=== PATIENT | male | born 1975 | race Caucasian/White ===

== ENCOUNTER → 2017-06-07 | Outpatient (CLI) | payer BC ==
--- NOTE | 2017-06-07 10:40 | CT ---
EXAMINATION TYPE: CT abdomen pelvis w con DATE OF EXAM: 06/07/2017 COMPARISON: NONE HISTORY: Infected abdominal wound CT DLP: 4541.40 mGycm Automated exposure control for dose reduction was used. CONTRAST: CT scan of the abdomen pelvis is performed with IV Contrast, patient injected with 100 ml mL of Omnip aque 300. FINDINGS- LUNG BASES-vague nodular density measuring 3 mm within the right middle lobe. LIVER/GB-liver slightly reduced in attenuation which can be seen with early fatty infiltration. No ga llstones. PANCREAS- No gross abnormality is seen. SPLEEN- No gross abnormality is seen. ADRENALS- No gross abnormality is seen. KIDNEYS/BLADDER- no hydronephrosis nephrolithiasis or renal mass. BOWEL- no bowel dilatation. Normal appendix. LYMPH NODES- No greater than 1cm abdominal or pelvic lymph nodes are appreciated. OSSEOUS UBCPSRQRDR-hvl-ghhvgjryit inguinal hernia bilaterally. OTHER- there is thickening in the per iumbilical region in the soft tissues. There is no evidence of subcutaneous abscess. Aorta of normal caliber. Prostate gland mildly prominent. Internal calcification seen. IMPRESSION- 1. There is soft tissue thickening in the periumbilical region. No definable abscess cavity seen. Lik marcia accounts for the history of suspected abdominal wound. No intra-abdominal extension seen. 2. 2. Nonspecific 3 mm right middle lobe pulmonary nodule. Six-month follow-up recommended.
== END | disposition home or self-care (01) ==
LOC: RADCTMAIN 09:30
PROVIDERS: ATTEND Surgery
DX: L08.9 Local infection of the skin and subcutaneous tissue, unspecified (principal)
CPT/HCPCS: 74177; Q9967

== ENCOUNTER 2017-06-21 07:24 | Emergency (ER) | payer BC ==
[2017-06-21 07:30] VITALS: BP 141/77; PULSE 94; RESP 16; TEMP 98.9
[2017-06-21] MEDS ORDERED: predniSONE 50 MG TAB PO STA (08:14)
[2017-06-21] MEDS ORDERED: AZITHROMYCIN 500 MG TAB PO STA (08:14)
--- NOTE | 2017-06-21 08:18 | XR ---
EXAMINATION TYPE: XR chest 2V DATE OF EXAM: 06/21/2017 COMPARISON: NONE HISTORY: Cough per patient. Chest pain per order. TECHNIQUE: Frontal and lateral views of the chest are obtained. FINDINGS: Somewhat low lung volumes are noted. There is some eventration of the anterior aspect righ t hemidiaphragm. There is no focal air space opacity, pleural effusion, or pneumothorax seen. The ca rdiac silhouette size is within normal limits. The osseous structures are intact. IMPRESSION: No acute cardiopulmonary process.
--- NOTE | 2017-06-21 08:22 | ED ---
URI HPI - General Chief Complaint: Upper Respiratory Infection Stated Complaint: COUGH, LUNGS Time Seen by Provider: 06/21/17 07:53 Source: patient, RN notes reviewed, old records reviewed Mode of arrival: ambulatory Limitations: no limitations - History of Present Illness Initial Comments: This is a 42-year-old male presenting to emergency Department chief complaint increased cough and congestion for the past few days. Patient reports that on the weekend he started to have an upper respiratory infection including sore throat, and sinus drainage. Patient states that he has been taking over-the- counter medication. He reports he recently has had a baby girl, is concerned that he could transmit an infection to her. Patient states that he has severe coughing fits, so primary last vomit. Denies any history of sick contacts is aware of. Denies any travel history. No chest pain shortness of breath, nausea or vomiting abdominal pain. - Related Data Home Medications Medication Instructions Recorded Confirmed Amoxicillin/Potassium Clav 1 tab PO Q12HR 06/21/17 06/21/17 [Augmentin 875-125 Tablet] Previous Rx's Medication Instructions Recorded Azithromycin [Zithromax Z-pack] 250 mg PO DIRECTED #6 tab 06/21/17 methylPREDNISolone Dose Pack 4 mg PO DIRECTED #21 package 06/21/17 [Medrol Dose Pack] Allergies Allergy/AdvReac Type Severity Reaction Status Date / Time No Known Allergies Allergy Verified 06/21/17 07:43 Review of Systems ROS Statement: Those systems with pertinent positive or pertinent negative responses have been documented in the HPI. ROS Other: All systems not noted in ROS Statement are negative. Past Medical History Past Medical History: No Reported History History of Any Multi-Drug Resistant Organisms: None Reported Past Surgical History: No Surgical Hx Reported Past Psychological History: No Psychological Hx Reported Smoking Status: Never smoker Past Alcohol Use History: None Reported Past Drug Use History: None Reported General Exam - General Exam Comments Initial Comments: Morbidly obese 42-year-old male. No acute distress. Limitations: no limitations General appearance: alert, in no apparent distress Head exam: Present: atraumatic, normocephalic, normal inspection Eye exam: Present: normal appearance, PERRL, EOMI. Absent: scleral icterus, conjunctival injection, periorbital swelling ENT exam: Present: normal exam, mucous membranes moist Neck exam: Present: normal inspection. Absent: tenderness, meningismus, lymphadenopathy Respiratory exam: Present: normal lung sounds bilaterally. Absent: respiratory distress, wheezes, rales, rhonchi, stridor Cardiovascular Exam: Present: regular rate, normal rhythm, normal heart sounds. Absent: systolic murmur, diastolic murmur, rubs, gallop, clicks GI/Abdominal exam: Present: soft, normal bowel sounds. Absent: distended, tenderness, guarding, rebound, rigid Extremities exam: Present: normal inspection, full ROM, normal capillary refill. Absent: tenderness, pedal edema, joint swelling, calf tenderness Back exam: Present: normal inspection Neurological exam: Present: alert, oriented X3, CN II-XII intact Psychiatric exam: Present: normal affect, normal mood Skin exam: Present: warm, dry, intact, normal color. Absent: rash Course Vital Signs 06/21/17 07:27 Temperature 98.9 F Pulse Rate 94 Respiratory 16 Rate Blood Pressure 141/77 O2 Sat by Pulse 94 L Oximetry Medical Decision Making - Medical Decision Making 42-year-old male chief complaint of increased cough over the past 2 days. Patient instructed to be negative for any signs of pneumonia. Patient has had a productive cough in the emergency department. No significant wheezing noted. Patient will be treated for bronchitis with azithromycin and prednisone. Discussed close follow-up with primary care provider or return if it is getting any worse. Testing [id number]-gvuerqt medications as well. Patient be discharged with a prescription for rest and prednisone. As well as an albuterol however patient received treatment plan will comply. Temperature discussed. - Radiology Data Radiology results: report reviewed Chest x-rays negative for any acute process. Disposition Clinical Impression: Bronchitis Disposition: HOME SELF-CARE Condition: Good Instructions: Acute Bronchitis (ED) Additional Instructions: Rest rest, increase fluids. Continue to take [id number] cough and sinus medication. Take steroid prescription and Robaxin as prescribed. Return to emergency department if any alarming signs or symptoms occur. Prescriptions: Azithromycin [Zithromax Z-pack] 250 mg PO DIRECTED #6 tab methylPREDNISolone Dose Pack [Medrol Dose Pack] 4 mg PO DIRECTED #21 package Referrals: Jose Andres MD [Primary Care Provider] - 1-2 days Time of Disposition: 08:18
--- NOTE | 2017-06-21 08:24 | ED ---
Disposition Clinical Impression: Bronchitis Disposition: HOME SELF-CARE Condition: Good Instructions: Acute Bronchitis (ED) Additional Instructions: Rest rest, increase fluids. Continue to take [id number]-[id number] cough and sinus medication. Take steroid prescription and Robaxin as prescribed. Return to emergency department if any alarming signs or symptoms occur. Prescriptions: Albuterol Inhaler [Ventolin Hfa Inhaler] 1 - 2 puff INHALATION Q6HR PRN #1 inhaler PRN Reason: Shortness Of Breath Azithromycin [Zithromax Z-pack] 250 mg PO DIRECTED #6 tab methylPREDNISolone Dose Pack [Medrol Dose Pack] 4 mg PO DIRECTED #21 package Referrals: Jose Andres MD [Primary Care Provider] - 1-2 days Time of Disposition: 08:24
== END 2017-06-21 08:50 | disposition home or self-care (01) ==
LOC: EC 07:24
DX: J40 Bronchitis, not specified as acute or chronic (principal); E66.01 Morbid (severe) obesity due to excess calories; Z68.42 Body mass index [BMI] 45.0-49.9, adult
CPT/HCPCS: 71020; 99284; J7512

== ENCOUNTER → 2017-07-11 | Outpatient (CLI) | payer BC ==
--- NOTE | 2017-07-11 17:07 | CT ---
EXAMINATION TYPE: CT chest wo con DATE OF EXAM: 07/11/2017 COMPARISON: NONE HISTORY: Pulmonary nodule. CT DLP: 883.00 mGycm. Automated Exposure Control for Dose Reduction was Utilized. TECHNIQUE: CT scan of the thorax is performed without IV contrast. FINDINGS: The lungs are clear of consolidation. There is no pleural effusion. There is no pericardial effusion. I see no mediastinal adenopathy. There are no hilar masses. The bony thorax is intact. I see no defi nite pulmonary nodule. There is no evidence of aortic aneurysm. IMPRESSION: Negative CT scan of the chest. I do not see a definite right middle lobe nodule that is s uggested by the abdomen CT scan report of 06/07/2017.
== END | disposition home or self-care (01) ==
LOC: RADCTMAIN 16:19
PROVIDERS: ATTEND Internal Medicine Sleep Medicine
DX: R91.1 Solitary pulmonary nodule (principal)
CPT/HCPCS: 71250

== ENCOUNTER 2018-09-28 16:57 | Emergency (ER) | payer BC ==
[2018-09-28 17:15] VITALS: PULSE 55; RESP 16; TEMP 98.4
[2018-09-28] MEDS ORDERED: ACET/COD 300 MG/30 MG STARTER PACK 6 TAB BTL PO STA (17:52)
[2018-09-28] MEDS ORDERED: LIDOCAINE 1% INJ 10MG/ML (20 ML MDV) SQ ONE (17:52)
[2018-09-28 17:57] VITALS: BP 144/97
--- NOTE | 2018-09-28 18:08 | ED ---
ENT HPI - General Chief complaint: Dental/Oral Stated complaint: dental pain/headaches Time Seen by Provider: 09/28/18 17:18 Source: patient, RN notes reviewed, old records reviewed Mode of arrival: ambulatory Limitations: no limitations - History of Present Illness Initial comments: Patient is a 43-year-old male who presents emergency Department chief complaint of headache and dental pain. Patient reports that he had a root canal on . He was having dental pain and headaches for the past week prior to his root canal. Patient states that Patient will have intermittent pain since . Patient states that he has had no fevers or chills. Patient reports he has no chest pain shortness of breath. Patient states it felt like sharp stabbing pain, and feels pressure in his head. He has been on antibiotics. - Related Data Home Medications Medication Instructions Recorded Confirmed Amoxicillin/Potassium Clav 1 tab PO Q12HR 06/21/17 06/21/17 [Augmentin 875-125 Tablet] Previous Rx's Medication Instructions Recorded Albuterol Inhaler [Ventolin Hfa 1 - 2 puff INHALATION Q6HR PRN #1 06/21/17 Inhaler] inhaler Azithromycin [Zithromax Z-pack] 250 mg PO DIRECTED #6 tab 06/21/17 methylPREDNISolone Dose Pack 4 mg PO DIRECTED #21 package 06/21/17 [Medrol Dose Pack] Acetaminophen with Codeine 1 tab PO Q6H PRN 3 Days #12 tab 09/28/18 [Tylenol w/codeine #3] Allergies Allergy/AdvReac Type Severity Reaction Status Date / Time No Known Allergies Allergy Verified 09/28/18 17:15 Review of Systems ROS Statement: Those systems with pertinent positive or pertinent negative responses have been documented in the HPI. ROS Other: All systems not noted in ROS Statement are negative. Past Medical History Past Medical History: No Reported History History of Any Multi-Drug Resistant Organisms: None Reported Past Surgical History: No Surgical Hx Reported Past Psychological History: No Psychological Hx Reported Smoking Status: Never smoker Past Alcohol Use History: None Reported Past Drug Use History: None Reported General Exam - General Exam Comments Initial Comments: 43-year-old male. Alert and oriented. Patient appears in no significant distress. Limitations: no limitations General appearance: alert, in no apparent distress Head exam: Present: atraumatic, normocephalic, normal inspection Eye exam: Present: normal appearance, PERRL, EOMI. Absent: scleral icterus, conjunctival injection, periorbital swelling ENT exam: Present: normal exam, mucous membranes moist Neck exam: Present: normal inspection. Absent: tenderness, meningismus, lymphadenopathy Respiratory exam: Present: normal lung sounds bilaterally. Absent: respiratory distress, wheezes, rales, rhonchi, stridor Cardiovascular Exam: Present: regular rate, normal rhythm, normal heart sounds. Absent: systolic murmur, diastolic murmur, rubs, gallop, clicks GI/Abdominal exam: Present: soft, normal bowel sounds. Absent: distended, tenderness, guarding, rebound, rigid Extremities exam: Present: normal inspection, full ROM, normal capillary refill. Absent: tenderness, pedal edema, joint swelling, calf tenderness Back exam: Present: normal inspection Neurological exam: Present: alert, oriented X3, CN II-XII intact Psychiatric exam: Present: normal affect, normal mood Skin exam: Present: warm, dry, intact, normal color. Absent: rash Course Vital Signs 09/28/18 09/28/18 17:13 17:57 Temperature 98.4 F Pulse Rate 55 L Respiratory 16 Rate Blood Pressure 199/84 144/97 O2 Sat by Pulse 97 Oximetry Procedures - Nerve Block Consent Obtained: verbal consent Local Anesthetic Used: Marcaine 0.5% Amount of anesthesia used: 3 Side: right Intraoral Nerve Block: inferior alveolar Procedure Successful: Yes Patient Tolerated Procedure: well, no complications Medical Decision Making - Medical Decision Making 43-year-old male presents emergency department today with dental pain from the right lower molar after recent refill. He complains of associated headache with this. He was given an inferior alveolar block. He reports he does feel somewhat better at this time. Patient at this time has been advised to follow- up with his oral surgeon. He is given a short course of Tylenol 3 for pain. I discussed return parameters. Is no other alarming signs or symptoms of neurological deficits. Blood pressure was improved after pain was relieed. Disposition Clinical Impression: Pain, dental Disposition: HOME SELF-CARE Condition: Good Instructions: Toothache (ED) Additional Instructions: Patient has a take pain medicine as prescribed. Follow-up with primary care physician. Return to emergency department if any alarming signs or symptoms occur. Prescriptions: Acetaminophen with Codeine [Tylenol w/codeine #3] 1 tab PO Q6H PRN 3 Days #12 tab PRN Reason: Pain Is patient prescribed a controlled substance at d/c from ED?: No Referrals: Jose Andres MD [Primary Care Provider] - 1-2 days Time of Disposition: 18:46
== END 2018-09-28 18:50 | disposition home or self-care (01) ==
LOC: EC 16:57
DX: K08.89 Other specified disorders of teeth and supporting structures (principal); R51 Headache
CPT/HCPCS: 99284; 64400; J2001; 62273

== ENCOUNTER 2020-04-10 11:27 | Observation (INO) | payer BC ==
[2020-04-10] MEDS ORDERED: SODIUM CHLORIDE 0.9% 500 ML 500 ML IV ONE (12:24)
[2020-04-10 12:38] LABS: Basophils # (A) 0.1 k/uL (0-0.2); Basophils % (A) 1 %; Eosinophils # (A) 0.4 k/uL (0-0.7); Eosinophils % (A) 5 %; HCT 44.1 % (39.0-53.0); HGB 14.5 gm/dL (13.0-17.5); Lymphocytes # (A) 2.6 k/uL (1.0-4.8); Lymphocytes % (A) 33 %; MCH 26.9 pg (25.0-35.0); MCV 81.5 fL (80.0-100.0); Mean Platelet Volume 7.9; Monocytes # (A) 0.4 k/uL (0-1.0); Monocytes % (A) 5 %; Neutrophils # (A) 4.3 k/uL (1.3-7.7); Neutrophils % (A) 55 %; Platelet Count 225 k/uL (150-450); RBC 5.41 m/uL (4.30-5.90); RDW 15.1 % (11.5-15.5); WBC 7.9 k/uL (3.8-10.6)
[2020-04-10 12:51] LABS: ALT 31 U/L (4-49); AST 38 U/L (17-59); African American GFR (CKD) >90 (>60 ml/min/1.73 sqM); Albumin 4.2 g/dL (3.5-5.0); Alkaline Phosphatase 88 U/L (38-126); Anion Gap 16 mmol/L; Blood Urea Nitrogen 16 mg/dL (9-20); Calcium 9.3 mg/dL (8.4-10.2); Carbon Dioxide 16 mmol/L (22-30); Chloride 103 mmol/L (98-107); Glucose 265 mg/dL (74-99); Magnesium 1.8 mg/dL (1.6-2.3); Non-African American GFR(CKD) >90 (>60 ml/min/1.73 sqM); Potassium 4.7 mmol/L (3.5-5.1); Sodium 135 mmol/L (137-145); Total Bilirubin 0.7 mg/dL (0.2-1.3); Total Protein 7.7 g/dL (6.3-8.2)
[2020-04-10 13:02] LABS: INR 0.9 (<1.2); Partial Thromboplastin Time 23.4 sec (22.0-30.0); Prothrombin Time 9.4 sec (9.0-12.0)
--- NOTE | 2020-04-10 13:22 | XR ---
EXAMINATION TYPE: XR chest 2V DATE OF EXAM: 04/10/2020 HISTORY: Chest Pain. REFERENCE: Previous study dated 06/21/2017. FINDINGS: There is chronic apparent elevation of the right hemidiaphragm. The lungs are clear. Pleural space are clear. The heart is not enlarged. IMPRESSION: NO ACTIVE INTRATHORACIC DISEASE.
--- NOTE | 2020-04-10 14:31 | ED ---
General Adult HPI - General Source: patient Mode of arrival: ambulatory Limitations: no limitations <Maria Del Rosario Choudhury - Last Filed: 04/10/20 14:31> <Lorenzo Romero - Last Filed: 04/10/20 15:08> - General Chief complaint: Allergic Reaction Stated complaint: diabetic/poss insulation reaction-chest tightness Time Seen by Provider: 04/10/20 11:57 - History of Present Illness Initial comments: 45-year-old male patient presents to the emergency department today for evaluation of chest tightness. Patient states this started approximately 4 days ago after starting a new medications. Patient is a newly diagnosed diabetic was started on days ago are and metformin by his primary care physician. States that he developed a chest tightness shortly after taking the first insulin dose. States that he has had some chest tightness in the evenings daily since then but woke up with it again this morning. Denies any shortness of breath with this. He was also started on omeprazole for acid reflux and difficulty swallo wing at the same visit. He denies any shortness of breath. Denies dizziness or weakness. He was having some left arm pain today. Denies any cough or congestion. Denies fever or chills. Patient denies any recent rash, abdominal pain, nausea, vomiting, diarrhea, constipation, back pain, numbness, tingling, dizziness, weakness, hematuria, dysuria, urinary urgency, urinary frequency, headache, visual changes, or any other complaints. (Maria Del Rosario Choudhury) - Related Data Home Medications Medication Instructions Recorded Confirmed Amoxicillin/Potassium Clav 1 tab PO Q12HR 06/21/17 06/21/17 [Augmentin 875-125 Tablet] Previous Rx's Medication Instructions Recorded Albuterol Inhaler (Mhu) [Ventolin 1 - 2 puff INHALATION Q6HR PRN #1 06/21/17 Hfa Inhaler (Mhu)] inhaler Azithromycin [Zithromax Z-pack] 250 mg PO DIRECTED #6 tab 06/21/17 methylPREDNISolone Dose Pack 4 mg PO DIRECTED #21 package 06/21/17 [Medrol Dose Pack] Acetaminophen with Codeine 1 tab PO Q6H PRN 3 Days #12 tab 09/28/18 [Tylenol w/codeine #3] Allergies Allergy/AdvReac Type Severity Reaction Status Date / Time No Known Allergies Allergy Verified 09/28/18 17:15 Review of Systems ROS Other: All systems not noted in ROS Statement are negative. <Maria Del Rosario Choudhury - Last Filed: 04/10/20 14:31> ROS Other: All systems not noted in ROS Statement are negative. <Lorenzo Romero - Last Filed: 04/10/20 15:08> ROS Statement: Those systems with pertinent positive or pertinent negative responses have been documented in the HPI. Past Medical History Past Medical History: Diabetes Mellitus History of Any Multi-Drug Resistant Organisms: None Reported Past Surgical History: No Surgical Hx Reported Past Psychological History: No Psychological Hx Reported Smoking Status: Never smoker Past Alcohol Use History: None Reported Past Drug Use History: None Reported <Maria Del Rosario Choudhury - Last Filed: 04/10/20 14:31> General Exam Limitations: no limitations General appearance: alert, in no apparent distress, other (This is a well- developed, well-nourished adult male patient in no acute distress. Vital signs upon presentation are temperature 98.2F, pulse 109, respirations 18, blood pressure 186/116, pulse ox 96% on room air.) Eye exam: Present: normal appearance, PERRL, EOMI. Absent: scleral icterus, conjunctival injection, periorbital swelling ENT exam: Present: normal exam, normal oropharynx, mucous membranes moist Respiratory exam: Present: normal lung sounds bilaterally. Absent: respiratory distress, wheezes, rales, rhonchi, stridor Cardiovascular Exam: Present: regular rate, normal rhythm, normal heart sounds. Absent: systolic murmur, diastolic murmur, rubs, gallop, clicks GI/Abdominal exam: Present: soft, normal bowel sounds. Absent: distended, tenderness, guarding, rebound, rigid Neurological exam: Present: alert, oriented X3, CN II-XII intact Psychiatric exam: Present: normal affect, normal mood Skin exam: Present: warm, dry, intact, normal color. Absent: rash <Maria Del Rosario Choudhury - Last Filed: 04/10/20 14:31> Course Vital Signs 04/10/20 04/10/20 04/10/20 11:42 11:48 13:34 Temperature 98.2 F Pulse Rate 109 H Respiratory 18 20 Rate Blood Pressure 186/116 151/95 O2 Sat by Pulse 96 98 Oximetry EKG Findings - EKG Comments: EKG Findings:: EKG obtained at 1146 shows normal sinus rhythm with a right bundle branch block. Ventricular rate is 93, P return to 162, QRS duration 148, QT 394, QTC 489. No previous EKGs available for comparison. <Maria Del Rosario Choudhury - Last Filed: 04/10/20 14:31> Medical Decision Making - Lab Data Result diagrams: 04/10/20 12:04/10/20 12:27 - Radiology Data Radiology results: report reviewed, image reviewed <Maria Del Rosario Choudhury - Last Filed: 04/10/20 14:31> - Lab Data Result diagrams: 04/10/20 12:27 04/10/20 12:27 <Lorenzo Romero - Last Filed: 04/10/20 15:08> - Medical Decision Making 45-year-old male patient presented to the emergency department today for evaluation of chest tightness and pain. Physical examination is unremarkable. EKG was obtained and shows sinus rhythm with a right bundle branch block. There are no previous EKGs for comparison. Patient is newly diagnosed diabetic blood sugar is 256. The remainder of labs are unremarkable including troponin. Chest x-ray shows no acute cardiopulmonary process. He will be admitted to see cardiology. Patient is agreeable. (Maria Del Rosario Choudhury) Patient also evaluated, reexamined and reevaluated by myself, Dr. Romero. I do PA findings. This includes diagnostic interpretation and treatment plan. Case was also discussed with Dr. Krishnamurthy, who will admit covering for Dr. Andres. He did evaluate patient in the emergency department (Lorenzo Romero) - Lab Data Lab Results 04/10/20 04/10/20 04/10/20 Range/Units 12:27 12: 12:27 WBC 7.9 (3.8-10.6) k/uL RBC 5.41 (4.30-5.90) m/uL Hgb 14.5 (13.0-17.5) gm/dL Hct 44.1 (39.0-53.0) % MCV 81.5 (80.0-100.0) fL MCH 26.9 (25.0-35.0) pg MCHC 33.0 (31.0-37.0) g/dL RDW 15.1 (11.5-15.5) % Plt Count 225 (150-450) k/uL Neutrophils % 55 % Lymphocytes % 33 % Monocytes % 5 % Eosinophils % 5 % Basophils % 1 % Neutrophils # 4.3 (1.3-7.7) k/uL Lymphocytes # 2.6 (1.0-4.8) k/uL Monocytes # 0.4 (0-1.0) k/uL Eosinophils # 0.4 (0-0.7) k/uL Basophils # 0.1 (0-0.2) k/uL PT 9.4 (9.0-12.0) sec INR 0.9 (<1.2) APTT 23.4 (22.0-30.0) sec Sodium 135 L (137-145) mmol/L Potassium 4.7 (3.5-5.1) mmol/L Chloride 103 (98-107) mmol/L Carbon Dioxide 16 L (22-30) mmol/L Anion Gap 16 mmol/L BUN 16 (9-20) mg/dL Creatinine 0.77 (0.66-1.25) mg/dL Est GFR (CKD-EPI)AfAm >90 (>60 ml/min/1.73 sqM) Est GFR (CKD-EPI)NonAf >90 (>60 ml/min/1.73 sqM) Glucose 265 H (74-99) mg/dL Calcium 9.3 (8.4-10.2) mg/dL Magnesium 1.8 (1.6-2.3) mg/dL Total Bilirubin 0.7 (0.2-1.3) mg/dL AST 38 (17-59) U/L ALT 31 (4-49) U/L Alkaline Phosphatase 88 (38-126) U/L Troponin I (0.000-0.034) ng/mL Total Protein 7.7 (6.3-8.2) g/dL Albumin 4.2 (3.5-5.0) g/dL 04/10/20 Range/Units 12:27 WBC (3.8-10.6) k/uL RBC (4.30-5.90) m/uL Hgb (13.0-17.5) gm/dL Hct (39.0-53.0) % MCV (80.0-100.0) fL MCH (25.0-35.0) pg MCHC (31.0-37.0) g/dL RDW (11.5-15.5) % Plt Count (150-450) k/uL Neutrophils % % Lymphocytes % % Monocytes % % Eosinophils % % Basophils % % Neutrophils # (1.3-7.7) k/uL Lymphocytes # (1.0-4.8) k/uL Monocytes # (0-1.0) k/uL Eosinophils # (0-0.7) k/uL Basophils # (0-0.2) k/uL PT (9.0-12.0) sec INR (<1.2) APTT (22.0-30.0) sec Sodium (137-145) mmol/L Potassium (3.5-5.1) mmol/L Chloride (98-107) mmol/L Carbon Dioxide (22-30) mmol/L Anion Gap mmol/L BUN (9-20) mg/dL Creatinine (0.66-1.25) mg/dL Est GFR (CKD-EPI)AfAm (>60 ml/min/1.73 sqM) Est GFR (CKD-EPI)NonAf (>60 ml/min/1.73 sqM) Glucose (74-99) mg/dL Calcium (8.4-10.2) mg/dL Magnesium (1.6-2.3) mg/dL Total Bilirubin (0.2-1.3) mg/dL AST (17-59) U/L ALT (4-49) U/L Alkaline Phosphatase (38-126) U/L Troponin I <0.012 (0.000-0.034) ng/mL Total Protein (6.3-8.2) g/dL Albumin (3.5-5.0) g/dL - Radiology Data Two-view x-ray was obtained. Report was reviewed in its entirety. Impression by Dr. Jeffries shows no active intrathoracic disease. (Maria Del Rosario Choudhury) Disposition Decision to Admit Reason: Admit from [facility] Decision Date: 04/10/20 Decision Time: 14:33 <Maria Del Rosario Choudhury - Last Filed: 04/10/20 14:31> <Lorenzo Romero - Last Filed: 04/10/20 15:08> Clinical Impression: Chest pain Disposition: ADMITTED IP TO THIS [facility] Condition: Serious Referrals: Jose Andres MD [Primary Care Provider] - 1-2 days
[2020-04-10] MEDS ORDERED: NITROGLYCERIN SL TABS 0.4 MG TAB SUBLINGUAL PRN (14:34)
[2020-04-10 15:45] LABS: Glucose,Whole Blood 228 mg/dL (75-99)
--- NOTE | 2020-04-10 17:31 | P.HPIM ---
History of Present Illness This is a pleasant 45 years old male with no significant past medical history. He is a patient of Dr. Andres. He was recently diagnosed with diabetes and acid reflux. 2 days ago he went to see his PCP for 2 problems first high sugar when he was noticed that he's has frequent urination and his PCP diagnosed him with new-onset diabetes and start him on metformin and insulin. When he started taking the medication which is thought is that he has chest tightness for 3 nights straight called his PCP thinking that is related to his diabetes medication which he has just started, however his PCP referred him to the emergency room. Patient says that his chest tightness this mild, central nonradiating no association factors like dyspnea palpitation, nausea vomiting or sweating. Also patient was recently diagnosed with acid reflux and his PCP prescribed and we'll patient states that he has sharp pain in the epigastric area that's relieved by liquids for about 20 years which was getting more frequent recently and at times he feels something stuck in his lower swallowing passage but he does not really have any swallowing problems. He denies smoking, alcohol or illicit drugs. Vitals are stable and labs unremarkable including CBC, BMP, liver enzymes, INR. Troponins 2 are negative with less than 0.012 Chest x-ray: No acute process. EKG showing normal sinus rhythm at 93 BPM, right bundle-branch block, no significant ST T changes, QTC is 489. The emergency room he received aspirin, nitroglycerin and fluids with cardiology consult Review of Systems CONSTITUTIONAL: No fever, no malaise, no fatigue. HEENT: No recent visual problems or hearing problems. Denied any sore throat. CARDIOVASCULAR: No orthopnea, PND, no palpitations, no syncope. PULMONARY: No shortness of breath, no cough, no hemoptysis. GASTROINTESTINAL: No diarrhea, no nausea, no vomiting, no abdominal pain. Normoactive bowel sounds. NEUROLOGICAL: No headaches, no weakness, no numbness. HEMATOLOGICAL: Denies any bleeding or petechiae. GENITOURINARY: Denies any burning micturition, frequency, or urgency. MUSCULOSKELETAL/RHEUMATOLOGICAL: Denies any joint pain, swelling, or any muscle pain. ENDOCRINE: Denies any polyuria or polydipsia. Past Medical History Past Medical History: Diabetes Mellitus History of Any Multi-Drug Resistant Organisms: None Reported Past Surgical History: No Surgical Hx Reported Past Psychological History: No Psychological Hx Reported Smoking Status: Never smoker Past Alcohol Use History: None Reported Past Drug Use History: None Reported Medications and Allergies Home Medications Medication Instructions Recorded Confirmed Type Ibuprofen [Motrin Ib] 600 mg PO Q8H PRN 04/10/20 04/10/20 History Insulin Glargine,Hum.rec.anlog 10 unit SQ HS 04/10/20 04/10/20 History [Basaglar Kwikpen U-100] Omeprazole 20 mg PO BID 04/10/20 04/10/20 History Unknown B12 Supp Drink 1 dose PO DAILY 04/10/20 04/10/20 History metFORMIN HCL [Glucophage] 500 mg PO BID 04/10/20 04/10/20 History Allergies Allergy/AdvReac Type Severity Reaction Status Date / Time No Known Allergies Allergy Verified 04/10/20 15:28 Physical Exam Vitals: Vital Signs Temp Pulse Pulse Resp BP BP Pulse Ox 04/10/20 16:56 98.1 F 93 19 167/99 96 04/10/20 15:20 98.0 F 92 18 129/82 96 04/10/20 13:34 151/95 98 04/10/20 11:48 20 04/10/20 11:42 98.2 F 109 H 18 186/116 96 Intake and Output 04/10/20 04/10/20 04/10/20 06:59 14:59 22:59 Other: Weight 156.489 kg GENERAL: The patient is alert and oriented x3, not in any acute distress. Well developed, well nourished. HEENT: Pupils are round and equally reacting to light. EOMI. No scleral icterus. No conjunctival pallor. Normocephalic, atraumatic. No pharyngeal erythema. No thyromegaly. CARDIOVASCULAR: S1 and S2 present. No murmurs, rubs, or gallops. PULMONARY: Chest is clear to auscultation, no wheezing or crackles. ABDOMEN: Soft, nontender, nondistended, normoactive bowel sounds. No palpable organomegaly. MUSCULOSKELETAL: No joint swelling or deformity. EXTREMITIES: No cyanosis, clubbing, or pedal edema. NEUROLOGICAL: Gross neurological examination did not reveal any focal deficits. SKIN: No rashes. No petechiae Results CBC & Chem 7: 04/10/20 12:27 04/10/20 12:27 Labs: Abnormal Lab Results - Last 24 Hours (Table) 04/10/20 04/10/20 Range/Units 12:27 15:43 Sodium 135 L (137-145) mmol/L Carbon Dioxide 16 L (22-30) mmol/L Glucose 265 H (74-99) mg/dL POC Glucose (mg/dL) 228 H (75-99) mg/dL Assessment and Plan Assessment: Chest tightness, rule out cardiac causes He was sitting diabetes mellitus Gastroesophageal reflux disease Swallowing problem, feeling something stuck in his lower chest whenever he eats. Plan: This is a pleasant 45 years old male who presents with chest pain. No dysuria troponins, EKG. Cardiology consult. Also check hemoglobin A1c. Start Protonix. Found to to swallow secreting Labs and medication were reviewed.. Continue same treatment. Continue with symptomatic treatment. Resume home medication. Monitor lytes and vitals. DVT and GI prophylaxis. Further recommendations of the clinical course of the patient DVT prophylaxis: Subcutaneous heparin GI Prophylaxis: Ppi Prognosis is guarded
[2020-04-10] MEDS: PANTOPRAZOLE 40 MG/10 ML VIAL IVP SCH (18:19)
[2020-04-10 20:43] LABS: Glucose,Whole Blood 287 mg/dL (75-99)
[2020-04-10] MEDS: GLIMEPIRIDE 1 MG TAB PO SCH (21:49)
[2020-04-10] MEDS: METOPROLOL TARTRATE 25 MG TAB PO SCH (21:49)
[2020-04-10] MEDS: INSULIN ASPART (NovoLOG) 100 UNIT/ML VIAL SQ SCH (21:49)
[2020-04-11 00:18] LABS: Glucose,Whole Blood 338 mg/dL (75-99)
[2020-04-11 06:22] LABS: Cholesterol 272 mg/dL (<200); HDL Cholesterol 28 mg/dL (40-60)
[2020-04-11 06:31] LABS: Triglycerides 1380 mg/dL (<150)
[2020-04-11 06:31] LABS: Glucose,Whole Blood 242 mg/dL (75-99)
[2020-04-11] MEDS ORDERED: ASPIRIN 325 MG TAB PO SCH (09:00)
--- NOTE | 2020-04-11 09:27 | CONS ---
CONSULTATION DATE OF SERVICE: 04/11/2020 REQUESTING PHYSICIAN: Dr. Andres REASON FOR CONSULTATION: Chest pain and dysphagia and heartburn. HISTORY OF PRESENT ILLNESS: The patient is a 45-year-old pleasant white male admitted to the hospital because of chest pain for the last 3 days duration. The patient was recently diagnosed with diabetes mellitus about a week ago and was started on insulin and metformin. After he started the medications, started having more chest tightness, became concerned, called Dr. Andres and he was recommended to go to the emergency room. Since then, he has been complaining of intermittent dysphagia to solids for the last several months duration and some heartburn for the last one year. He was started on omeprazole 20 mg daily a week ago and his symptoms are gradually improving. His dysphagia is worse with chicken and rice. He never had any choking episodes. He came to the emergency room and troponins so far have been negative. EKG has been negative. Cardiology has been consulted. The patient is doing much better. He reports no abdominal pain. No nausea, vomiting. PAST MEDICAL HISTORY: New onset diabetes mellitus and gastroesophageal reflux disease. PAST SURGICAL HISTORY: None. MEDICATIONS: Medications at home include insulin, omeprazole, metformin, and Motrin. ALLERGIES: None. SOCIAL HISTORY: No smoking. No alcohol use. FAMILY HISTORY: Unremarkable. REVIEW OF SYSTEMS: CARDIOPULMONARY: No chest pain or shortness of breath. no dysuria or hematuria. MUSCULOSKELETAL unremarkable. SKIN unremarkable. ENDOCRINE unremarkable. PSYCHIATRIC unremarkable. NEUROLOGY: Unremarkable. ENT/VISION: Unremarkable. CONSTITUTIONAL: No recent weight loss. No fever, chills, night sweats. PHYSICAL EXAMINATION: He appears comfortable. No apparent distress. VITAL SIGNS: Stable. Blood pressure is 156/82, pulse is 75, temperature 97.9. HEENT examination unremarkable. Conjunctivae pink. Sclerae anicteric. Oral cavity no lesions. NECK no JVD or lymph node enlargement. CHEST was clear to auscultation. HEART: Regular rate and rhythm. ABDOMEN: Soft. Bowel sounds are positive. No organomegaly. EXTREMITIES no pedal edema. SKIN no rashes. NEUROLOGIC: Alert and oriented x3. No focal deficits. LABS: CBC is within normal limits. PT/INR normal. Troponins less than 0.012. Triglycerides elevated at 1380, total cholesterol 272. AST, ALT, T-bilirubin, alkaline phosphatase are normal. IMPRESSION: 1. The patient presented to the hospital with atypical chest pain for the last few days duration. Cardiology has been consulted. EKG and troponins have been negative so far. 2. Intermittent dysphagia to solids and history of gastroesophageal reflux disease of one year duration. He has been on omeprazole 20 mg daily that was started about a week ago and his symptoms are gradually improving. 3. Newly diagnosed diabetes mellitus. RECOMMENDATIONS: 1. Continue omeprazole 20 mg daily. 2. Await cardiology consultation. 3. Diet modifications and anti-reflux measures. 4. We will consider an upper endoscopy on an outpatient basis. Thank you for this consultation. MMODL / IJN: [id number] /
[2020-04-11] MEDS: PANTOPRAZOLE 40 MG/10 ML VIAL IVP SCH (09:36)
[2020-04-11] MEDS: METOPROLOL TARTRATE 25 MG TAB PO SCH ×2 (09:36→21:06)
[2020-04-11] MEDS: INSULIN ASPART (NovoLOG) 100 UNIT/ML VIAL SQ SCH ×4 (09:36→21:23)
--- NOTE | 2020-04-11 10:21 | CONS ---
CONSULTATION Mr. Freitas is a 45-year-old male who was recently diagnosed with diabetes mellitus initiated on treatment, who presented to the emergency room with symptoms of discomfort in the chest. The discomfort occurred at rest. He called his primary care physician who advised him to come to the emergency room. The patient is not very active physically during the pandemic but he has no significant chest discomfort with activity, no dyspnea on exertion. He denies any dizziness or palpitation. No syncope. No PND, orthopnea, or peripheral edema. He had mild edema in the past that resolved. The diagnosis of diabetes is recent. MEDICATION: At home include ibuprofen, insulin, metformin 5 mg twice a day and omeprazole. REVIEW OF SYSTEMS: Respiratory system: He has no documented history of asthma, emphysema or bronchitis. GI system: No recent GI bleeding. No peptic ulcer disease. system: No dysuria or hematuria. NERVOUS SYSTEM: No history of stroke or seizure. PHYSICAL EXAMINATION: He is a 45-year-old male, alert, oriented, in no apparent distress. Blood pressure running in the 150s with a heart rate in 70s. HEAD: Normocephalic. Eyes sclerae anicteric. NECK good upstroke. No bruit. No jugular venous distention. LUNGS: Clear to auscultation. HEART: Regular rate and rhythm S1, S2. No S3. No rub. No murmur. ABDOMEN: Soft, obese, nontender. Positive bowel sounds. No megaly. EXTREMITIES: No edema. LAB DATA: Revealed troponin less than 0.012. BUN and creatinine 16 and 0.77, potassium 4.7, hemoglobin 14.5. His cholesterol is 272. TG 1380. EKG revealed a sinus mechanism, right bundle branch block with nonspecific ST-T wave changes. His chest x-ray shows no acute infiltrate. IMPRESSION: 1. Chest discomfort atypical for ischemic heart disease in a patient with recently diagnosed diabetes mellitus. 2. Hypertension. 3. Hypertriglyceridemia, most likely related to the untreated diabetes. 4. Obesity. RECOMMENDATIONS: From the cardiac standpoint, I will add an RADHA inhibitor to his regimen. In view of the history of diabetes, I would add a statin and subsequently he may benefit from other treatment. If his triglyceride remains elevated, I would recommend to obtain an echocardiogram with Doppler and a stress echocardiogram to evaluate his status and guide his treatment and depending on results of testing, further recommendation will be made. Thank you for this consult. We will follow with you. TEAGAN / IJN: [id number] / MTDD
[2020-04-11] MEDS: ATORVASTATIN 40 MG TAB PO SCH (10:24)
[2020-04-11] MEDS: GLIMEPIRIDE 1 MG TAB PO SCH ×2 (10:24→21:22)
[2020-04-11] MEDS: LISINOPRIL 5 MG TAB PO SCH ×2 (10:24→21:06)
[2020-04-11 11:57] LABS: Glucose,Whole Blood 283 mg/dL (75-99)
[2020-04-11 17:07] LABS: Glucose,Whole Blood 161 mg/dL (75-99)
[2020-04-11] MEDS ORDERED: ACETAMINOPHEN TAB 325 MG TAB PO STA (17:34)
--- NOTE | 2020-04-11 18:54 | P.PN ---
Subjective This is a pleasant 45 years old male with no significant past medical history. He is a patient of Dr. Andres. He was recently diagnosed with diabetes and acid reflux. 2 days ago he went to see his PCP for 2 problems first high sugar when he was noticed that he's has frequent urination and his PCP diagnosed him with new-onset diabetes and start him on metformin and insulin. When he started taking the medication which is thought is that he has chest tightness for 3 nights straight called his PCP thinking that is related to his diabetes medic ation which he has just started, however his PCP referred him to the emergency room. Patient says that his chest tightness this mild, central nonradiating no association factors like dyspnea palpitation, nausea vomiting or sweating. Also patient was recently diagnosed with acid reflux and his PCP prescribed and we'll patient states that he has sharp pain in the epigastric area that's relieved by liquids for about 20 years which was getting more frequent recently and at times he feels something stuck in his lower swallowing passage but he does not really have any swallowing problems. He denies smoking, alcohol or illicit drugs. Vitals are stable and labs unremarkable including CBC, BMP, liver enzymes, INR. Troponins 2 are negative with less than 0.012 Chest x-ray: No acute process. EKG showing normal sinus rhythm at 93 BPM, right bundle-branch block, no significant ST T changes, QTC is 489. The emergency room he received aspirin, nitroglycerin and fluids with cardiology consult 04/11/20 pt is with no chest pain or swallowing difficulty , most of his symptoms has resolved , he is been evaluated by GI team and recommended he follows up as out patient setting for endoscopy , pt is informed as well as at bed side , risks inculding but not limited to cancer are explained to them and they verbalized understanding and acceptance automotive service consultant is planing for stress test tomorrow hemoglobin a1c is pending , currently pt is on amaryl increased to 3 mg Objective - Vital Signs Vital signs: Vital Signs Temp 97.4 F L 04/11/20 16:00 Pulse 82 04/11/20 16:00 Resp 16 04/11/20 16:00 BP 110/68 04/11/20 16:00 Pulse Ox 95 04/11/20 16:00 Intake & Output 04/10/20 04/11/20 04/11/20 18:59 06:59 18:59 Intake Total 4804 Balance 4804 Weight 156.489 kg Intake: Oral 4804 Other: # Voids 1 1 1 - Exam GENERAL: The patient is alert and oriented x3, not in any acute distress. Well developed, well nourished. HEENT: Pupils are round and equally reacting to light. EOMI. No scleral icterus. No conjunctival pallor. Normocephalic, atraumatic. No pharyngeal erythema. No thyromegaly. CARDIOVASCULAR: S1 and S2 present. No murmurs, rubs, or gallops. PULMONARY: Chest is clear to auscultation, no wheezing or crackles. ABDOMEN: Soft, nontender, nondistended, normoactive bowel sounds. No palpable organomegaly. MUSCULOSKELETAL: No joint swelling or deformity. EXTREMITIES: No cyanosis, clubbing, or pedal edema. NEUROLOGICAL: Gross neurological examination did not reveal any focal deficits. SKIN: No rashes. No petechiae - Labs CBC & Chem 7: 04/10/20 12:27 04/10/20 12:27 Labs: Abnormal Lab Results - Last 24 Hours (Table) 04/10/20 04/11/20 04/11/20 Range/Units 20:42 00:16 05:38 POC Glucose (mg/dL) 287 H 338 H (75-99) mg/dL Triglycerides 1380 H (<150) mg/dL Cholesterol 272 H (<200) mg/dL HDL Cholesterol 28 L (40-60) mg/dL 04/11/20 04/11/20 04/11/20 Range/Units 06:29 11:56 17:06 POC Glucose (mg/dL) 242 H 283 H 161 H (75-99) mg/dL Triglycerides (<150) mg/dL Cholesterol (<200) mg/dL HDL Cholesterol (40-60) mg/dL Assessment and Plan Assessment: Chest tightness, rule out cardiac causes recently diagnosed diabetes mellitus Gastroesophageal reflux disease Swallowing problem, feeling something stuck in his lower chest whenever he eats. obesity Plan: This is a pleasant 45 years old male who presents with chest pain. No dysuria troponins, EKG. Cardiology consult. Also check hemoglobin A1c. Start Protonix. Found to to swallow secreting Labs and medication were reviewed.. Continue same treatment. Continue with symptomatic treatment. Resume home medication. Monitor lytes and vitals. DVT and GI prophylaxis. Further recommendations of the clinical course of the patient DVT prophylaxis: Subcutaneous heparin GI Prophylaxis: Ppi Prognosis is guarded
[2020-04-11 21:04] LABS: Glucose,Whole Blood 204 mg/dL (75-99)
[2020-04-12 06:36] LABS: Glucose,Whole Blood 256 mg/dL (75-99)
[2020-04-12] MEDS ORDERED: PANTOPRAZOLE 40 MG TABLET PO SCH (07:30)
[2020-04-12] MEDS: GLIMEPIRIDE 1 MG TAB PO SCH (07:59)
[2020-04-12 08:00] LABS: African American GFR (CKD) >90 (>60 ml/min/1.73 sqM); Anion Gap 7 mmol/L; Blood Urea Nitrogen 15 mg/dL (9-20); Calcium 8.9 mg/dL (8.4-10.2); Carbon Dioxide 26 mmol/L (22-30); Chloride 102 mmol/L (98-107); Glucose 245 mg/dL (74-99); Non-African American GFR(CKD) >90 (>60 ml/min/1.73 sqM); Potassium 4.3 mmol/L (3.5-5.1); Sodium 135 mmol/L (137-145)
[2020-04-12] MEDS: LISINOPRIL 5 MG TAB PO SCH ×2 (08:00→20:21)
[2020-04-12] MEDS: ASPIRIN 81 MG PO SCH (08:00)
[2020-04-12] MEDS: ATORVASTATIN 40 MG TAB PO SCH (08:00)
[2020-04-12 09:37] LABS: Hemoglobin A1C 12.2 % (4.0-6.0)
[2020-04-12 12:21] LABS: Glucose,Whole Blood 257 mg/dL (75-99)
[2020-04-12] MEDS: INSULIN ASPART (NovoLOG) 100 UNIT/ML VIAL SQ SCH ×4 (12:47→20:22)
[2020-04-12] MEDS: METOPROLOL TARTRATE 25 MG TAB PO SCH (12:47)
--- NOTE | 2020-04-12 12:51 | ECHOF ---
Referral Reason:cp MEASUREMENTS -------- HEIGHT: 180.3 cm WEIGHT: 156.5 kg BP: RVIDd: 3.5 cm (< 3.3) IVSd: 1.5 cm (0.6 - 1.1) LVIDd: 3.8 cm (3.9 - 5.3) LVPWd: 1.5 cm (0.6 - 1.1) IVSs: 1.9 cm LVIDs: 2.2 cm LVPWs: 1.8 cm Ao Diam: 3.4 cm (2.0 - 3.7) AV Cusp: 2.4 cm (1.5 - 2.6) LA Diam: 3.2 cm (2.7 - 3.8) MV EXCURSION: 15.965 mm (> 18.000) MV EF SLOPE: 87 mm/s (70 - 150) EPSS: 0.5 cm MV E Ivan: 0.87 m/s MV DecT: 182 ms MV A Ivan: 0.75 m/s MV E/A Ratio: 1.16 RAP: 5.00 mmHg RVSP: 13.69 mmHg FINDINGS -------- Resting tachycardia (HR>100bpm). This was a technically difficult study with suboptimal views. The left ventricular size is normal. There is moderate concentric left ventricular hypertrophy. O verall left ventricular systolic function is normal with, an EF between 55 - 60 %. The right ventricle is mildly enlarged. The left atrial size is normal. The right atrial size is normal. 5.0mg of Lumason was utilized for enhancement of images The aortic valve is trileaflet and appears structurally normal. The mitral valve is normal. There is trace mitral regurgitation. The tricuspid valve appears structurally normal. Trace tricuspid regurgitation present. Right yadira tricular systolic pressure is normal at < 35 mmHg. There is no pulmonic regurgitation present. The aortic root size is normal. IVC Not well visulized. There is no pericardial effusion. CONCLUSIONS -------- 1. Resting tachycardia (HR>100bpm). 2. This was a technically difficult study with suboptimal views. 3. The left ventricular size is normal. 4. There is moderate concentric left ventricular hypertrophy. 5. Overall left ventricular systolic function is normal with, an EF between 55 - 60 %. 6. The right ventricle is mildly enlarged. 7. The left atrial size is normal. 8. The right atrial size is normal. 9. 5.0mg of Lumason was utilized for enhancement of images 10. The aortic valve is trileaflet and appears structurally normal. 11. The mitral valve is normal. 12. There is trace mitral regurgitation. 13. The tricuspid valve appears structurally normal. 14. Trace tricuspid regurgitation present. 15. Right ventricular systolic pressure is normal at < 35 mmHg. 16. There is no pulmonic regurgitation present. 17. The aortic root size is normal. 18. IVC Not well visulized. 19. There is no pericardial effusion. WHISKEY REGAUGER: Gayle Shah RDCS
--- NOTE | 2020-04-12 13:11 | EST ---
EXERCISE STRESS DATE OF SERVICE: 04/10/2020 AGE: 45 SEX: M HT: 70" WT: 345 lbs PROTOCOL: Stress Echo STAGE: 2 DURATION OF EXERCISE: 5 minutes 57 seconds HEART RATE REST: 85 BLOOD PRESSURE REST: 140/77 MAXIMUM HEART RATE ACHIEVED: 173 MAXIMUM BLOOD PRESSURE: 199/64 85% MPHR: 150 100% MPHR: 176 METS: 6 INDICATIONS: Chest pain. STRESS DATA: Pretesting physical examination showed a heart rate of 85, pressure is 140/77 mmHg. Baseline EKG showed sinus rhythm with right bundle branch block. The patient exercised on the treadmill according to Matthew protocol for a total of 5 minutes and 57 seconds and achieved 6 of METS with max heart rate was 173, which is about 98% of maximum predicted heart rate. Maximum blood pressure was 199/64 mmHg. Clinically the patient did not have no symptoms of chest pain or chest discomfort during the testing or on recovery. The EKG did not show any significant ST or T-wave abnormalities concerning for ischemia. Please note that the patient with exercise went into left bundle branch block. ECHOCARDIOGRAM IMAGES: On echocardiogram images from parasternal long axis view, parasternal short axis view, apical 4 chamber and apical 2 chamber obtained as the baseline images, at the peak of the heart rate as well as on recovery. The echocardiogram images did not show any evidence of wall motion abnormalities concerning for ischemia. CONCLUSION: 1. Average exercise tolerance. 2. Arrhythmia in response to exercise in terms of left bundle branch block as well as wide-complex rhythm. 3. Normal echocardiogram in response to exercise. MMODL / IJN: [id number] /
--- NOTE | 2020-04-12 13:23 | P.PN ---
Subjective This is a pleasant 45-year-old male past medical history significant for diabetes mellitus. He underwent stress test today. On the treadmill after exercising for approximately 2 minutes he went into what appeared to be a wide complex rhythm with varying morphologies. Echo images were unremarkable for ischemia. He was short of breath throughout the exam with no changes in his breathing when his rhythm changed. He had no chest pain, dizziness or palpitations. He did convert back to sinus mechanism with right bundle branch block spontaneously post exercise. Blood pressure 120/85 heart rate 117 afebrile maintaining oxygen saturation on room air. Laboratory data reviewed, sodium 135, potassium 4.3, creatinine 0.73. Currently maintained on metoprolol 25 mg twice a day, lisinopril 5 mg twice a day, atorvastatin 40 mg daily and aspirin 81 mg daily. GENERAL: Well-appearing, well-nourished and in no acute distress. Morbidly obese . NECK: Supple without JVD or thyromegaly. LUNGS: Breath sounds clear to auscultation bilaterally. Respiration equal and unlabored. No wheezes, rales or rhonchi. HEART: Regular rate and rhythm without murmurs, rubs or gallops. S1 and S2 heard. EXTREMITIES: Normal range of motion, no edema. No clubbing or cyanosis. Peripheral pulses intact. ASSESSMENT Chest pain, atypical. An acute coronary event has been ruled out. No evidence of ischemia on stress test. Wide complex exercise induced tachycardia Hypertension Diabetes mellitus Dyslipidemia Hypertriglyceridemia, severe Morbid obesity, BMI 49 PLAN We will ask Dr. Cutler to evaluate the EKG changes on his stress test prior to discharge. Continue metoprolol as previously ordered. Further recommendations to follow based on clinical course. Nurse Practitioner note has been reviewed, I agree with a documented findings and plan of care. Patient was seen and examined. Objective - Vital Signs Vital signs: Vital Signs Temp 98.3 F 04/12/20 12:43 Pulse 117 H 04/12/20 12:43 Resp 16 04/12/20 12:43 BP 120/85 04/12/20 12:43 Pulse Ox 93 L 04/12/20 12:43 Intake & Output 04/11/20 04/12/20 04/12/20 18:59 06:59 18:59 Intake Total 444 Balance 444 Weight 156.9 kg 156.9 kg Intake: Oral 444 Other: Voiding Method Toilet Toilet # Voids 1 2 1 - Labs CBC & Chem 7: 04/10/20 12:27 04/12/20 07:18 Labs: Abnormal Lab Results - Last 24 Hours (Table) 04/10/20 04/11/20 04/11/20 Range/Units 18:24 17:06 21:02 Sodium (137-145) mmol/L Glucose (74-99) mg/dL POC Glucose (mg/dL) 161 H 204 H (75-99) mg/dL Hemoglobin A1c 12.2 H (4.0-6.0) % 04/12/20 04/12/20 04/12/20 Range/Units 06:33 07:18 12:20 Sodium 135 L (137-145) mmol/L Glucose 245 H (74-99) mg/dL POC Glucose (mg/dL) 256 H 257 H (75-99) mg/dL Hemoglobin A1c (4.0-6.0) %
[2020-04-12 17:05] LABS: Glucose,Whole Blood 200 mg/dL (75-99)
--- NOTE | 2020-04-12 19:39 | P.PN ---
Progress Note - Text Progress Note Date: 04/12/20 Presenting complaint: Chest tightness Interval history: Presented with 3 days of chest tightness. Today-sitting up in bed. Continue no chronic symptoms. Saw the patient this afternoon. Pending stress test. Review of systems: Was done for constitutional, cardiovascular, GI, pulmonary. relevant finding as above Active Medications Aspirin (Aspirin) 81 mg PO DAILY [facility] Last Admin: 04/12/20 08:00 Dose: 81 mg Documented by: Atorvastatin Calcium (Lipitor) 40 mg PO DAILY [facility] Last Admin: 04/12/20 08:00 Dose: 40 mg Documented by: Glimepiride (Amaryl) 2 mg PO -[facility] Last Admin: 04/12/20 07:59 Dose: 2 mg Documented by: Insulin Aspart (Novolog) 0 unit SQ [facility]; Protocol Last Admin: 04/12/20 17:19 Dose: 5 unit Documented by: Lisinopril (Zestril) 5 mg PO BID [facility] Last Admin: 04/12/20 08:00 Dose: 5 mg Documented by: Metoprolol Tartrate (Lopressor) 50 mg PO BID [facility] Nitroglycerin (Nitrostat) 0.4 mg SUBLINGUAL Q5M PRN PRN Reason: Chest Pain Pantoprazole Sodium (Protonix) 40 mg PO -[facility] Last Admin: 04/12/20 08:00 Dose: 40 mg Documented by: On examination: VITAL SIGNS: 98.3, 110, 16, 120/85, 93% room air GENERAL APPEARANCE: BMI 49.6, sitting at the edge of the bed, comfortable HEENT: Normal external appearance of nose and ear. Oral cavity normal EYES: Pupils equal. Conjunctiva normal. NECK: JVD not raised. Mass not palpable. RESPIRATORY: Respiratory effort normal. Lungs clear to auscultation. CARDIOVASCULAR: First and second sounds normal. No edema. ABDOMEN: Soft. Liver and spleen not palpable. No tenderness. No mass palpable. PSYCHIATRY: Alert and oriented x3. Mood and affect normal. INVESTIGATIONS, reviewed in the clinical context: Potassium 4.3 creatinine 0.73 triglycerides 1380, troponin I negative HDL 28 Accu-Cheks 257, 200 2-D echocardiogram-a 55-60% Stress echocardiogram showed left bundle branch block as well as wide complex rhythm Assessment: -Anterior chest wall pain-cardiac cause being worked up -Left bundle branch block admitted via as a result a stress echocardiogram -Morbid obesity BMI 49.6 -Severe triglyceridemia -Hypercholesterolemia, uncontrolled -Diabetes mellitus type 2, oral hypoglycemic newly diagnosed, uncontrolled with hyperglycemia Plan: Fall in the stress echocardiogram Dr. Cutler from EP service was consulted. Further decision after his evaluation.
--- NOTE | 2020-04-12 19:51 | P.CRDCN ---
History of Present Illness History of present illness: This is Dr. Cutler dictating a consult on this patient The patient was interviewed and examined IMPRESSION / ASSESSMENT: Exercise-induced RVOT ventricular tachycardia Morbid obesity Recently diagnosed with diabetes RV is mildly enlarged on 2-D echo, technically difficult study Baseline twelve-lead ECG shows right bundle branch block pattern, no epsilon waves, no QRS fractionation Morbid obesity Diabetes type 2 Hypertriglyceridemia with levels greater than 1300 PLAN: The detailed discussion with the patient regarding this problem of palpitations and RVOT V. tach Mechanism of the tachycardia explained Treatment options including EP study and radiofrequency ablation as well as as medical treatment outlined Workup for structural heart disease outlined I would recommend coronary angiography to delineate the epicardial coronary anatomy, Increase metoprolol to 50 g twice daily Thereafter consider EP study and radiofrequency ablation. Success rates, failure rates and complications including cardiac perforation discussed in detail Medical treatment with beta blockers would be a second option and he would have to take it lifelong Workup for obstructive sleep apnea. Patient says that he does stop breathing at night according to his and he was worked up for obstructive sleep apnea and was prescribed a CPAP mask in the past which he does not use HPI Patient recently diagnosed with diabetes and was started on insulin Every evening he would get midsternal chest discomfort after taking insulin No other associated symptoms no palpitations He was ruled out for an acute myocardial infarction line he underwent a 2-D echo and Doppler study which showed LVH with preserved systolic function but right ventricle appeared mildly enlarged Twelve-lead ECG showed right bundle branch block pattern He underwent Stress echo He had exercise-induced wide-complex tachycardia consistent with right ventricular outflow tract V. tach once his heart rate reached around 160 beats a minute Abrupt termination and a heart rate around 150 beats a minute On more detailed questioning, the patient states that at least for the last 8 years he has had these episodes off and on when he would exercise somewhat strenuously and at about a heart rate of 160 beats a minute something changes about the way his heart is beating His heart is beating fast but it feels different and it makes him stop He has never passed out on account of this He hardly exercises to this level to get it that often but he does remember that he had these episodes even 8 years back just around the time when he met his No family history of sudden or premature No personal history of recurrent syncope other than when he was in high school ROS: No fever chills or rigors, no cough, phlegm or expectoration, no nausea, vomiting or diarrhea, no hematuria, dysuria, no musculoskeletal complaints, no strokes or seizures, no skin lesions. EXAMINATION: Blood pressure 124/76 milligrams of mercury pulse rate in the 80s, afebrile 90F Breath sounds are clear no rhonchi no crackles Normal heart sounds no murmurs no gallops No lower extremity edema Increased BMI of 50 REVIEW OF LABS, ECG & MEDICAL DATA Sodium 135, potassium 4.3 BUN 15 and creatinine 0.73 glucose 245 Triglycerides 1380 Total cholesterol 272 HDL 28 Past Medical History Past Medical History: Diabetes Mellitus History of Any Multi-Drug Resistant Organisms: None Reported Past Surgical History: No Surgical Hx Reported Additional Past Surgical History / Comment(s): surgery for nosebleeds when a child Past Anesthesia/Blood Transfusion Reactions: No Reported Reaction Past Psychological History: No Psychological Hx Reported Smoking Status: Never smoker Past Alcohol Use History: None Reported Past Drug Use History: None Reported - Past Family History Mother Family Medical History: Diabetes Mellitus, Hypertension Additional Family Medical History / Comment(s): vertigo Father Additional Family Medical History / Comment(s): patient states his father had "heart issues" and is . Medications and Allergies Home Medications Medication Instructions Recorded Confirmed Type Ibuprofen [Motrin Ib] 600 mg PO Q8H PRN 04/10/20 04/10/20 History Insulin Glargine,Hum.rec.anlog 10 unit SQ HS 04/10/20 04/10/20 History [Basaglar Kwikpen U-100] Omeprazole 20 mg PO BID 04/10/20 04/10/20 History Unknown B12 Supp Drink 1 dose PO DAILY 04/10/20 04/10/20 History metFORMIN HCL [Glucophage] 500 mg PO BID 04/10/20 04/10/20 History Allergies Allergy/AdvReac Type Severity Reaction Status Date / Time No Known Allergies Allergy Verified 04/10/20 15:28 Physical Exam Vitals: Vital Signs Temp Pulse Resp BP BP Pulse Ox 04/12/20 19:37 97.7 F 90 18 124/76 95 04/12/20 17:09 98 F 82 16 129/84 95 04/12/20 12:43 98.3 F 117 H 16 120/85 93 L 04/12/20 07:46 98 F 80 16 130/70 95 04/12/20 03:57 97.8 F 83 18 114/65 94 L 04/11/20 23:49 97.6 F 74 18 139/75 94 L 04/11/20 20:00 97.7 F 84 18 120/74 95 Intake and Output 04/12/20 04/12/20 04/12/20 06:59 14:59 22:59 Intake Total 444 600 Balance 444 600 Intake: Oral 444 600 Other: Voiding Method Toilet Toilet Toilet # Voids 2 1 2 Weight 156.9 kg 156.9 kg Results 04/10/20 12:27 04/12/20 07:18 Comprehensive Metabolic Panel 04/12/20 Range/Units 07:18 Sodium 135 L (137-145) mmol/L Potassium 4.3 (3.5-5.1) mmol/L Chloride 102 (98-107) mmol/L Carbon Dioxide 26 (22-30) mmol/L BUN 15 (9-20) mg/dL Creatinine 0.73 (0.66-1.25) mg/dL Glucose 245 H (74-99) mg/dL Calcium 8.9 (8.4-10.2) mg/dL Current Medications Generic Name Dose Route Start Last Admin Trade Name Freq PRN Reason Stop Dose Admin Aspirin 81 mg 04/12/20 09:00 04/12/20 08:00 Aspirin PO 81 mg DAILY [facility] Administration Atorvastatin Calcium 40 mg 04/11/20 09:30 04/12/20 08:00 Lipitor PO 40 mg DAILY [facility] Administration Glimepiride 2 mg 04/11/20 19:00 04/12/20 07:59 Amaryl PO 2 mg AC-BRKFST [facility] Administration Insulin Aspart 0 unit 04/10/20 21:00 04/12/20 17:19 Novolog SQ 5 unit ACHS [facility] Administration Protocol Lisinopril 5 mg 04/11/20 09:30 04/12/20 08:00 Zestril PO 5 mg BID [facility] Administration Metformin HCl 500 mg 04/12/20 19:39 Glucophage PO BID-W/MEALS [facility] Metoprolol Tartrate 50 mg 04/12/20 21:00 Lopressor PO BID [facility] Nitroglycerin 0.4 mg 04/10/20 14:34 Nitrostat SUBLINGUAL Q5M PRN Chest Pain Pantoprazole Sodium 40 mg 04/12/20 07:30 04/12/20 08:00 Protonix PO 40 mg AC-BRKFST [facility] Administration Intake and Output 04/12/20 04/12/20 04/12/20 06:59 14:59 22:59 Intake Total 444 600 Balance 444 600 Intake: Oral 444 600 Other: Voiding Method Toilet Toilet Toilet # Voids 2 1 2 Weight 156.9 kg 156.9 kg Patient Weight 04/13/20 06:59 Weight 156.9 kg 04/10/20 12:27 04/12/20 07:18
--- NOTE | 2020-04-12 19:54 | P.PRLE ---
RE: Phani Freitas Dear Billy Phani Freitas underwent a stress test and he had exercise-induced ventricular tachycardia originating from the free wall of the right ventricle I have recommended that he proceed with an EP study, reassessment for sleep apnea and assessment for other causes of right ventricular enlargement, as well as a TSH level His 2-D echo shows a mildly enlarged right ventricle, he does have morbid obesity and untreated obstructive sleep apnea Thank you for entrusting me with the care of the patient Warm regards Sincerely Tanner Cutler
[2020-04-12 20:08] LABS: Glucose,Whole Blood 232 mg/dL (75-99)
[2020-04-12] MEDS: METOPROLOL TARTRATE 50 MG TAB PO SCH (20:21)
[2020-04-12] MEDS: metFORMIN 500 MG TAB PO SCH (20:22)
--- NOTE | 2020-04-13 06:20 | P.PN ---
Subjective Progress Note Date: 04/12/20 Principal diagnosis: Esophageal dysphagia, GERD, chest pain Patient is seen lying in bed no acute events overnight. Waiting for a cardiology for discussion regarding chest pain. Tolerating diet. Objective - Vital Signs Vital signs: Vital Signs Temp 98.3 F 04/12/20 12:43 Pulse 117 H 04/12/20 12:43 Resp 16 04/12/20 12:43 BP 120/85 04/12/20 12:43 Pulse Ox 93 L 04/12/20 12:43 Intake & Output 04/11/20 04/12/20 04/12/20 18:59 06:59 18:59 Intake Total 444 Balance 444 Weight 156.9 kg 156.9 kg Intake: Oral 444 Other: Voiding Method Toilet Toilet # Voids 1 2 1 - Exam On physical examination, patient appears comfortable in no apparent distress. HEAD: Normocephalic, atraumatic. EYES: No scleral icterus. No conjunctival injection. MOUTH: No lesions, tongue midline. NECK: Trachea midline, no gross abnormalities. ABDOMEN: Soft, obese. Bowel sounds are positive. No organomegaly. No guarding or rigidity. EXTREMITIES: No pedal edema. SKIN: No rashes, no jaundice. NEUROLOGIC: Alert and oriented x3. No focal deficits. - Labs CBC & Chem 7: 04/10/20 12:27 04/12/20 07:18 Labs: Abnormal Lab Results - Last 24 Hours (Table) 04/10/20 04/11/20 04/11/20 Range/Units 18:24 17:06 21:02 Sodium (137-145) mmol/L Glucose (74-99) mg/dL POC Glucose (mg/dL) 161 H 204 H (75-99) mg/dL Hemoglobin A1c 12.2 H (4.0-6.0) % 04/12/20 04/12/20 04/12/20 Range/Units 06:33 07:18 12:20 Sodium 135 L (137-145) mmol/L Glucose 245 H (74-99) mg/dL POC Glucose (mg/dL) 256 H 257 H (75-99) mg/dL Hemoglobin A1c (4.0-6.0) % Assessment and Plan (1) Esophageal dysphagia Narrative/Plan: 45-year-old male with a known history of GERD of 1 year duration who has intermittent solid food dysphagia. Recently started on omeprazole with some improvement in symptoms. Presented to the hospital with complaints of chest pain currently being evaluated by cardiology. Current Visit: Yes Status: Acute Code(s): R13.10 - DYSPHAGIA, UNSPECIFIED SNOMED Code(s): 49738704 (2) GERD (gastroesophageal reflux disease) Current Visit: Yes Status: Acute Code(s): K21.9 - GASTRO-ESOPHAGEAL REFLUX DISEASE WITHOUT ESOPHAGITIS SNOMED Code(s): 776473908 (3) Chest pain Current Visit: Yes Status: Acute Code(s): R07.9 - CHEST PAIN, UNSPECIFIED SNOMED Code(s): 81800952 Plan: Supportive care Okay for diet as tolerated Cardiology evaluation underway GERD lifestyle modifications discussed Omeprazole 20 mg daily in the outpatient setting, patient is on Protonix 40 mg twice daily while hospitalized No plans for endoscopic evaluation at this time, patient should follow-up in the outpatient setting after discharge with consideration for EGD if symptoms persist Okay for discharge when otherwise medically stable Thank you for allowing us to dissipate in the care of the patient, the GI service will stand by, please call us back with any questions or concerns
[2020-04-13 06:24] LABS: Glucose,Whole Blood 253 mg/dL (75-99)
[2020-04-13] MEDS ORDERED: PANTOPRAZOLE 40 MG TABLET PO SCH (07:30)
[2020-04-13] MEDS: ASPIRIN 81 MG PO SCH (08:45)
[2020-04-13] MEDS: METOPROLOL TARTRATE 50 MG TAB PO SCH (08:45)
[2020-04-13] MEDS: LISINOPRIL 5 MG TAB PO SCH (08:45)
[2020-04-13] MEDS: ATORVASTATIN 40 MG TAB PO SCH (08:45)
[2020-04-13 09:38] VITALS: BP 135/87; PULSE 80; RESP 16; TEMP 97.4
[2020-04-13] MEDS: metFORMIN 500 MG TAB PO SCH (09:46)
[2020-04-13] MEDS: INSULIN ASPART (NovoLOG) 100 UNIT/ML VIAL SQ SCH (09:47)
[2020-04-13] MEDS: GLIMEPIRIDE 1 MG TAB PO SCH (09:47)
[2020-04-13 11:09] VITALS: BMI 49.6
[2020-04-13 11:44] LABS: Glucose,Whole Blood 247 mg/dL (75-99)
--- NOTE | 2020-04-13 12:22 | P.PN ---
Subjective This is a pleasant 45-year-old male past medical history significant for diabetes mellitus. He was evaluated by Dr. Cutler last night and diagnosed with exercise induced RVOT ventricular tachycardia. Lopressor was increased and EP study with ablation discussed as treatment options. He will require cardiac catheterization prior to that. He is seen and examined sitting up in bed in no acute distress. He denies chest pain, shortness of breath, dizziness or palpitations. Blood pressure 135/87 heart rate 80 afebrile and maintaining oxyg en saturations on room air. No arrhythmia on telemetry tracings. GENERAL: Well-appearing, well-nourished and in no acute distress. Morbidly obese. NECK: Supple without JVD or thyromegaly. LUNGS: Breath sounds clear to auscultation bilaterally. Respiration equal and unlabored. No wheezes, rales or rhonchi. HEART: Regular rate and rhythm without murmurs, rubs or gallops. S1 and S2 heard. EXTREMITIES: Normal range of motion, no edema. No clubbing or cyanosis. Peripheral pulses intact. ASSESSMENT Chest pain, atypical. An acute coronary event has been ruled out. No evidence of ischemia on stress test. Exercise induced RVOT ventricular tachycardia Hypertension Diabetes mellitus Dyslipidemia Hypertriglyceridemia, severe Morbid obesity, BMI 49 PLAN Increase activity and ambulation in the halls. Stable for discharge to undergo outpatient cardiac catheterization with Dr. Nye and then thereafter further evaluation with Dr. Cutler. Will likely require further treatment of elevated triglycerides with Vescepa if insurance will allow. Plan discussed in detail with him and his who is at the bedside. Nurse Practitioner note has been reviewed, I agree with a documented findings a nd plan of care. Patient was seen and examined. Objective - Vital Signs Vital signs: Vital Signs Temp 97.4 F L 04/13/20 08:45 Pulse 80 04/13/20 08:45 Resp 16 04/13/20 08:45 BP 135/87 04/13/20 08:45 Pulse Ox 96 04/13/20 08:45 Intake & Output 04/12/20 04/13/20 04/13/20 18:59 06:59 18:59 Intake Total 1044 Balance 1044 Weight 156.9 kg 156.9 kg Intake: Oral 1044 Other: Voiding Method Toilet Toilet Toilet # Voids 1 1 - Labs CBC & Chem 7: 04/10/20 12:27 04/12/20 07:18 Labs: Abnormal Lab Results - Last 24 Hours (Table) 04/12/20 04/12/20 04/12/20 Range/Units 12:20 17:00 20:06 POC Glucose (mg/dL) 257 H 200 H 232 H (75-99) mg/dL 04/13/20 04/13/20 Range/Units 06:21 11:42 POC Glucose (mg/dL) 253 H 247 H (75-99) mg/dL
--- NOTE | 2020-04-13 22:56 | P.DS ---
Providers Date of admission: 04/10/20 14:21 Expected date of discharge: 04/13/20 Attending physician: Jarrod Cuenca Consults: 04/10/20 14:34 Consult Physician Urgent Consulting Provider: [facility] Consult Reason/Comments: Chest Pain Do you want consulting provider notified?: Yes 04/12/20 12:36 Consult Physician Routine Consulting Provider: Tanner Cutler Reason/Comments: ectopy on stress test vs left bundle Do you want consulting provider notified?: Already Contacted Primary care physician: [facility] Course: Presenting complaint: Chest tightness Interval history: Presented with 3 days of chest tightness. Stress echocardiogram showed left bundle branch block and exercise-induced ventricular tachycardia.. Today-seen by Dr. Hernández from EP service. Patient undergoing outpatient for the same. Also need a cardiac catheterization. Beta blockers were answered. I discussed with Zaida Alaniz from cardiogenic. Also discussed the care with patient's and the . We will hold off glimepiride and increase the dose of metformin. Several questions about diabetes was answered. Patient to monitor his Accu-Cheks. Discussion and discharge planning more than 35 minutes Consultation: Dr. Ruperto Cutler from EP Dr. Nye from cardiology Dr. Sebastian Cortes from GI On examination: VITAL SIGNS: 97.4, 80, 16, 100 3587, 96% room air GENERAL APPEARANCE: BMI 49.6, sitting at the edge of the bed, comfortable HEENT: Normal external appearance of nose and ear. Oral cavity normal EYES: Pupils equal. Conjunctiva normal. NECK: JVD not raised. Mass not palpable. RESPIRATORY: Respiratory effort normal. Lungs clear to auscultation. CARDIOVASCULAR: First and second sounds normal. No edema. ABDOMEN: Soft. Liver and spleen not palpable. No tenderness. No mass palpable. PSYCHIATRY: Alert and oriented x3. Mood and affect normal. INVESTIGATIONS, reviewed in the clinical context: Potassium 4.3 creatinine 0.73 triglycerides 1380, troponin I negative HDL 28 Accu-Cheks 257, 200 2-D echocardiogram-a 55-60% Stress echocardiogram showed left bundle branch block as well as ventricular tachycardia Assessment: -Anterior chest wall pain-cardiac cause being worked up -Left bundle branch block and ventricular tachycardia, exercise-induced -Morbid obesity BMI 49.6 -Severe triglyceridemia -Hypercholesterolemia, uncontrolled -Diabetes mellitus type 2, oral hypoglycemic newly diagnosed, uncontrolled with hyperglycemia Disposition: Home Patient Condition at Discharge: Stable Plan - Discharge Summary Discharge Rx Participant: No New Discharge Prescriptions: New Aspirin 81 mg PO DAILY chew Atorvastatin [Lipitor] 40 mg PO DAILY #30 tab Metoprolol Tartrate [Lopressor] 50 mg PO BID #60 tab metFORMIN HCL 1,000 mg PO BID #30 tab Nitroglycerin Sl Tabs [Nitrostat] 0.4 mg SUBLINGUAL Q5M PRN #25 tab PRN Reason: Chest Pain Lisinopril [Prinivil] 10 mg PO DAILY@1400 #30 tab Continue Omeprazole 20 mg PO BID Insulin Glargine,Hum.rec.anlog [Basaglar Kwikpen U-100] 10 unit SQ HS Discontinued Ibuprofen [Motrin Ib] 600 mg PO Q8H PRN PRN Reason: Pain metFORMIN HCL [Glucophage] 500 mg PO BID No Action Unknown B12 Supp Drink 1 dose PO DAILY Discharge Medication List Insulin Glargine,Hum.rec.anlog [Basaglar Kwikpen U-100] 10 unit SQ HS 04/10/20 [History] Omeprazole 20 mg PO BID 04/10/20 [History] Unknown B12 Supp Drink 1 dose PO DAILY 04/10/20 [History] Aspirin 81 mg PO DAILY chew 04/13/20 [Rx] Atorvastatin [Lipitor] 40 mg PO DAILY #30 tab 04/13/20 [Rx] Lisinopril [Prinivil] 10 mg PO DAILY@1400 #30 tab 04/13/20 [Rx] Metoprolol Tartrate [Lopressor] 50 mg PO BID #60 tab 04/13/20 [Rx] Nitroglycerin Sl Tabs [Nitrostat] 0.4 mg SUBLINGUAL Q5M PRN #25 tab 04/13/20 [Rx] metFORMIN HCL 1,000 mg PO BID #30 tab 04/13/20 [Rx] Follow up Appointment(s)/Referral(s): Antonio Nye MD [STAFF PHYSICIAN] - 1 Week (Office will call patient back with appointment.) Joes Andres MD [Primary Care Provider] - 1-2 days Sasha Domingo NPC [Nurse Practitioner] - 1 Week (f/o chest pain/GERD. Will need OP EGD) Discharge Disposition: HOME SELF-CARE
== END 2020-04-13 12:25 | disposition home or self-care (01) ==
LOC: EC 11:27 → 1SOBS 14:21
PROVIDERS: ADMIT Hospitalist; ATTEND Hospitalist
DX: R07.89 Other chest pain (principal); E11.65 Type 2 diabetes mellitus with hyperglycemia; K21.9 Gastro-esophageal reflux disease without esophagitis; I45.2 Bifascicular block; I47.2 Ventricular tachycardia; E66.01 Morbid (severe) obesity due to excess calories; E78.1 Pure hyperglyceridemia; E78.00 Pure hypercholesterolemia, unspecified; G47.33 Obstructive sleep apnea (adult) (pediatric); I51.7 Cardiomegaly; E78.5 Hyperlipidemia, unspecified; Z68.42 Body mass index [BMI] 45.0-49.9, adult; Z03.818 Encounter for observation for suspected exposure to other biological agents ruled out; Z79.899 Other long term (current) drug therapy; Z98.890 Other specified postprocedural states; Z83.3 Family history of diabetes mellitus; Z82.49 Family history of ischemic heart disease and other diseases of the circulatory system; Z84.89 Family history of other specified conditions
CPT/HCPCS: 93005 ×2; 96374; 96376; 96361; 99285; 36415; 93306; 93351; 80061; 80053; 80048; 84443; 83735; 84484 ×2; 85025; 85610; 85730; 83036; 71046; G0378 ×4; U0003; C9113 ×2; Q9950

== ENCOUNTER 2020-05-17 06:41 | Day surgery (SDC) | payer BC ==
[2020-05-13 08:40] VITALS: BMI 49.2
[~2020-05-17 06:41] MED LIST: LACTATED RINGERS 1,000 ML IV SCH; LIDOCAINE 1% (10MG/ML) FOR IV START INTRADERMA PRN
[2020-05-17 07:07] VITALS: RESP 16; TEMP 96.9
[2020-05-17 07:18] LABS: Glucose,Whole Blood 130 mg/dL (75-99)
[2020-05-17] MEDS ORDERED: MIDAZOLAM 2 MG/2 ML VIAL ONE (07:29)
[2020-05-17] MEDS ORDERED: PROPOFOL 10 MG/ML 20 ML VIAL IV ONE (07:29)
[2020-05-17 08:04] LABS: Glucose,Whole Blood 138 mg/dL (75-99)
--- NOTE | 2020-05-17 08:10 | P.PCN ---
Date of Procedure: 05/17/20 Description of Procedure: BRIEF HISTORY: Patient is a 45-year-old male presenting for evaluation of heartburn with esophagogastroduodenoscopy. Patient reports controlled symptoms on omeprazole twice daily. He has breakthrough symptoms of off the medication. PROCEDURE PERFORMED: Esophagogastroduodenoscopy with biopsy. PREOPERATIVE DIAGNOSIS: Heartburn, GERD. ESTIMATED BLOOD LOSS: Minimal. IV sedation per anesthesia. PROCEDURE: After informed consent was obtained, the patient was brought into the endoscopy unit. IV sedation was administered by Anesthesia under continuous monitoring. Initially the Olympus GIF-190 video endoscope was inserted into the mouth. Esophagus intubated without any difficulty. It was gradually advanced into the stomach and duodenum and carefully examined. The bulb and the second part of the duodenum appeared normal, with biopsies taken to rule out celiac sprue. The scope at this time was withdrawn to the stomach, adequately insufflated with air, and upon careful examination, mucosa of the antrum, body, cardia and the fundus appeared normal, except for some mild scattered erythema in the antrum and body suggestive of mild gastritis with biopsies taken. The scope was then withdrawn into the esophagus. The GE junction was located at 43 cm from the incisors with biopsies taken. The esophagus appeared normal. There were no erosions or ulcerations seen and the patient tolerated the procedure well. IMPRESSION: 1. Mild gastritis antrum body, biopsied. 2. Biopsies of the GE junction and duodenum. RECOMMENDATIONS: The findings of this examination were discussed with the patient. Okay to resume diet. Okay to resume medication. Await pathology from biopsies. Follow up in gastroenterology clinic as previously scheduled. Continue PPI therapy..
[2020-05-17 08:41] VITALS: BP 121/63; PULSE 75
== END 2020-05-17 08:53 | disposition home or self-care (01) ==
LOC: ORWHC2ENDO 06:41
PROVIDERS: ATTEND Internal Medicine
DX: K21.0 Gastro-esophageal reflux disease with esophagitis (principal); K29.50 Unspecified chronic gastritis without bleeding; Z98.890 Other specified postprocedural states; R00.0 Tachycardia, unspecified; I10 Essential (primary) hypertension; E78.5 Hyperlipidemia, unspecified; G47.33 Obstructive sleep apnea (adult) (pediatric); E11.9 Type 2 diabetes mellitus without complications; Z79.82 Long term (current) use of aspirin; Z79.4 Long term (current) use of insulin; Z79.899 Other long term (current) drug therapy
CPT/HCPCS: 88305; 43239; J2250; J2704

== ENCOUNTER → 2020-05-20 | Outpatient (CLI) | payer BC ==
--- NOTE | 2020-05-20 17:44 | CONS ---
CONSULTATION DATE OF SERVICE: 05/20/2020 This patient is a 45-year-old gentleman who has [facility] for possible obstructive sleep apnea-hypopnea syndrome. HISTORY OF PRESENT ILLNESS/SLEEP-WAKE EVALUATION: Patient's usual sleep schedule is from 11 p.m. to 6 a.m. Sometimes he has problems with falling asleep. He has a TV set in the bedroom. He usually sleeps on the side position. When he is on his back, he snores. He wakes up from sleep more than 3 times with up to 2 episodes of nocturia. Over the last 10 years his weight has increased by 90 pounds; over the last 5 years, pounds. No history of hypnagogic hallucinations, sleep paralysis or cataplexy. During the day, the patient usually take one nap around 2 p.m. He usually feels refreshed after the nap. No vivid dreams during naps. [place] Sleepiness Scale today is 7. The patient had a home sleep apnea test in another institution 3 years ago and after that was started on treatment with CPAP, but he was not able to use the equipment. PAST MEDICAL HISTORY: Positive for hypertension, headaches, diabetes mellitus, ventricular tachycardia. MEDICATIONS: Aspirin, atorvastatin, metoprolol, metformin, nitro, lisinopril. SOCIAL HISTORY: Negative for smoking or using alcohol. FAMILY HISTORY: Positive for hypertension, hyperlipidemia, thyroid problems. REVIEW OF SYSTEMS: Multiple awakenings from sleep. Episodes of sleepiness during the day. PHYSICAL EXAMINATION: GENERAL: A pleasant gentleman without distress. VITAL SIGNS: BP 157/97, HR 96, RR 16, height 5 feet 9 inches, weight 343, BMI 50.6, temperature 98.0, oxygen saturation at room air 94%. HEENT: PERRLA, EOMI. Evaluation of oropharynx showed tongue protrudes midline. Extremely low position of soft palate. Mallampati IV. NECK: Supple. No JVD. Thyroid is not palpable. Neck measures 19 inches in circumference. LUNGS: Clear to percussion and to auscultation. Good air exchange. No wheezing or rhonchi. HEART: S1, S2 regular. No murmurs, gallops or rubs. ABDOMEN: Obese. EXTREMITIES: No clubbing or cyanosis. REFRIGERATING OILER: Awake, alert, and oriented X3. Cranial nerves 2 to 7 intact. There is no fasciculation or atrophy. noted. No focal deficits observed. IMPRESSION: 1. History of obstructive sleep apnea in the past, snoring, multiple awakenings from sleep, nocturia, extremely low position of soft palate, wide neck, obesity; obstructive sleep apnea-hypopnea syndrome. 2. Morbid obesity with body mass index 50.6. 3. History of ventricular tachycardia. 4. Hypertension. 5. Hyperlipidemia. 6. Headaches. 7. Diabetes mellitus. PLAN: 1. Polysomnography for evaluation of patient's breathing during sleep. 2. CPAP/BiPAP titration if sleep study confirms obstructive sleep apnea-hypopnea syndrome. 3. Preferable position during sleep on the side. 4. No driving if patient feels any sleepiness. 5. I will see patient for follow up visit to explain results of testing and following plan. Thank you very much for referring this patient for consultation. Sincerely, Clay Talbot MD, PhD, FAASM Diplomat of [employer] Pooling Operator of [facility] [place] MMODL / IJN: [id number] /
== END | disposition home or self-care (01) ==
LOC: SLEEP 13:54
PROVIDERS: ATTEND Internal Medicine
DX: G47.33 Obstructive sleep apnea (adult) (pediatric) (principal); I10 Essential (primary) hypertension; E78.5 Hyperlipidemia, unspecified; R51 Headache; E11.9 Type 2 diabetes mellitus without complications; E66.01 Morbid (severe) obesity due to excess calories; Z68.43 Body mass index [BMI] 50.0-59.9, adult; Z86.79 Personal history of other diseases of the circulatory system; Z79.891 Long term (current) use of opiate analgesic; Z79.899 Other long term (current) drug therapy; Z79.84 Long term (current) use of oral hypoglycemic drugs
CPT/HCPCS: 99211

== ENCOUNTER → 2020-06-18 | Outpatient (CLI) | payer BC ==
[2020-06-18 07:57] LABS: Basophils # (A) 0.1 k/uL (0-0.2); Basophils % (A) 1 %; Eosinophils # (A) 0.2 k/uL (0-0.7); Eosinophils % (A) 2 %; HCT 41.8 % (39.0-53.0); HGB 13.4 gm/dL (13.0-17.5); Lymphocytes % (A) 25 %; MCH 26.2 pg (25.0-35.0); Mean Platelet Volume 7.6; Monocytes # (A) 0.5 k/uL (0-1.0); Monocytes % (A) 5 %; Neutrophils % (A) 67 %; Platelet Count 270 k/uL (150-450); RDW 15.1 % (11.5-15.5); WBC 11.8 k/uL (3.8-10.6)
[2020-06-18 08:05] LABS: African American GFR (CKD) >90 (>60 ml/min/1.73 sqM); Anion Gap 10 mmol/L; Blood Urea Nitrogen 16 mg/dL (9-20); Calcium 9.5 mg/dL (8.4-10.2); Carbon Dioxide 24 mmol/L (22-30); Chloride 102 mmol/L (98-107); Glucose 109 mg/dL (74-99); Magnesium 1.8 mg/dL (1.6-2.3); Non-African American GFR(CKD) 83 (>60 ml/min/1.73 sqM); Potassium 4.7 mmol/L (3.5-5.1); Sodium 136 mmol/L (137-145)
== END | disposition home or self-care (01) ==
LOC: LABPAT 07:03
PROVIDERS: ATTEND Internal Medicine Clinical Cardiac Electrophysiology
DX: Z01.818 Encounter for other preprocedural examination (principal)
CPT/HCPCS: 80048; 83735; 85025

== ENCOUNTER 2020-06-24 10:47 | Day surgery (SDC) | payer BC ==
[2020-06-22 09:18] VITALS: BMI 47.6
[2020-06-24] MEDS: SODIUM CHLORIDE 0.9% 1,000 ML IV SCH (11:40)
[2020-06-24] MEDS ORDERED: fentaNYL (PF) 50 MCG/ML 2 ML AMP ONE (12:07)
[2020-06-24] MEDS ORDERED: PROPOFOL 10 MG/ML 20 ML VIAL IV ONE (12:07)
[2020-06-24] MEDS ORDERED: KETAMINE 10 MG/ML 20 ML VIAL ONE (12:07)
[2020-06-24] MEDS ORDERED: diphenhydrAMINE 50 MG/ML 1 ML VIAL ONE (12:07)
[2020-06-24] MEDS ORDERED: ISOPROTERENOL 250 MCG/1.25 ML SYR IV ONE (12:07)
[2020-06-24] MEDS ORDERED: HYDROmorphone (PF) 1 MG/ML ONE (12:07)
[2020-06-24] MEDS ORDERED: MIDAZOLAM 2 MG/2 ML VIAL ONE (12:07)
--- NOTE | 2020-06-24 12:23 | P.HPCAR ---
History of Present Illness This is Dr. Cutler dictating an H/P on this patient The patient was interviewed and examined IMPRESSION / ASSESSMENT: Exercise-induced RVOT ventricular tachycardia Morbid obesity Type 2 diabetes Right bundle branch block on twelve-lead ECG but no epsilon waves fractionation Mildly enlarged RV Hypertriglyceridemia with levels greater than 1300 Status sleep apnea using a CPAP mask Patient stable from a cardiac vascular standpoint to proceed with EP study and ablation PLAN: EP study to induce ventricular tachycardia and mapping and ablation thereafter Management of hypertriglyceridemia HPI Recurrent palpitations especially with exercise. He had exercise-induced ventricular tachycardia. He states that when his heart rate reaches between 150 260 beats a minute or treadmill his heart suddenly flips and he has a different type of a rapid heartbeat. This was clearly documented on a stress test. Once his heart rate reached 160 beats a minute, VT was induced spontaneously. There was abrupt termination around a heartbeat of 150 beats a minute ROS: No fever chills or rigors, no cough, phlegm or expectoration, no nausea, vomiting or diarrhea, no hematuria, dysuria, no musculoskeletal complaints, no strokes or seizures, no skin lesions. EXAMINATION: 98.4F, pulse rate in the 70s, blood pressure 146 27 mmHg Breath sounds are clear no rhonchi no crackles Normal heart sounds regular no murmurs or gallops Abdomen soft No edema in the lower extremities No JVD REVIEW OF LABS, ECG & MEDICAL DATA medications include diabetes medications metoprolol 50 g twice daily last taken on June 18, atorvastatin, aspirin and losartan Physical Exam Vitals: Vital Signs Temp Pulse Resp BP Pulse Ox 06/24/20 11:30 98.4 F 71 16 146/87 96 Intake and Output 06/23/20 06/24/20 06/24/20 22:59 06:59 14:59 Intake Total 50 Balance 50 Intake: IV 50 Other: Weight 147.2 kg Past Medical History Past Medical History: Diabetes Mellitus, GERD/Reflux, Hyperlipidemia, Hypertension Additional Past Medical History / Comment(s): Hx of dysphagia to bread, rice, chicken @times (states no problem since taking omeprazole., Hx V-tach, back pain, states recent bleeding from "belly button" for 2 days- denies pain or swelling ., states he had bleeding a couple years ago from belly button also., scheduled for sleep study 06/22/20., see [facility] States 30 lb weight loss since March or April (trying to lose wt.) History of Any Multi-Drug Resistant Organisms: None Reported Past Surgical History: No Surgical Hx Reported Additional Past Surgical History / Comment(s): anesthesia for nosebleeds when a child, EGD Past Anesthesia/Blood Transfusion Reactions: No Reported Reaction Past Psychological History: No Psychological Hx Reported Smoking Status: Never smoker Past Alcohol Use History: None Reported Past Drug Use History: None Reported - Past Family History Mother Family Medical History: Diabetes Mellitus, Hypertension Additional Family Medical History / Comment(s): vertigo Father Family Medical History: Unable to Obtain Additional Family Medical History / Comment(s): states unknown hx of father Physical Examination Vital Signs Temp Pulse Resp BP Pulse Ox 06/24/20 11:30 98.4 F 71 16 146/87 96 Intake and Output 06/23/20 06/24/20 06/24/20 22:59 06:59 14:59 Intake Total 50 Balance 50 Intake: IV 50 Other: Weight 147.2 kg Results Current Medications Generic Name Dose Route Start Last Admin Trade Name Jose Ramonq PRN Reason Stop Dose Admin Lactated Ringer's 1,000 mls @ 20 mls/hr 06/24/20 07:27 Lactated Ringers IV .Q24H NIKHIL Sodium Chloride 1,000 mls @ 50 mls/hr 06/24/20 07:27 06/24/20 11:40 Saline 0.9% IV 50 mls .Q20H NIKHIL Administration Intake and Output 06/23/20 06/24/20 06/24/20 22:59 06:59 14:59 Intake Total 50 Balance 50 Intake: IV 50 Other: Weight 147.2 kg Patient Weight 06/25/20 06:59 Weight 147.2 kg
[2020-06-24] MEDS ORDERED: LIDOCAINE 1% INJ 10MG/ML (20 ML MDV) ONE ×2 (12:31→12:41)
[2020-06-24] MEDS ORDERED: LIDOCAINE 1% INJ 10MG/ML (20 ML MDV) SQ ONE ×3 (12:38→14:59)
[2020-06-24] MEDS ORDERED: HEPARIN SODIUM (1,000 UNIT/ML) 1,000 UNIT in SODIUM CHLORIDE 0.9% 1,000 ML IRRIGATION ONE (13:55)
[2020-06-24] MEDS ORDERED: ACETAMINOPHEN TAB 325 MG TAB PO PRN (16:56)
[2020-06-24] MEDS ORDERED: HYDROcodone/APAP 5-325MG 1 EACH TAB PO PRN (16:56)
[2020-06-24] MEDS ORDERED: ACETAMINOPHEN IV (For NPO) 1,000 MG in EMPTY BAG 1 BAG IVPB ONE (18:00)
[2020-06-24] MEDS: LACTATED RINGERS 1,000 ML IV SCH (18:02)
--- NOTE | 2020-06-24 19:09 | PCN ---
PROCEDURE NOTE Mr. Phani Freitas is a 45-year-old male patient who has had palpitations, exercise- induced, for many years. He was admitted to the hospital a few months back and underwent a stress test and had exercise-induced ventricular tachycardia that was consistent with RVOT VT. The tachycardia begins when his sinus rate reaches about 150 to 160 beats per minute and it terminates below that rate. No syncope. He was brought in for an EP study and possible ablation. The patient brought to the EP lab in a fasting state. Written informed consent was obtained prior to the procedure. The right and left groins were prepped and draped as per protocol. Venous sheaths were placed in the right and left femoral veins. Via these, diagnostic catheters were positioned in the high right atrium, coronary sinus, RV, His bundle area. Sinus cycle length 933 milliseconds, [place] interval 189 milliseconds, QRS 176 milliseconds, QT 450 milliseconds. AH interval 80 milliseconds, HV interval 56 milliseconds. VA Wenckebach block 440 milliseconds. Parahisian pacing was performed and a tran response to parahisian pacing was noted. AV node Wenckebach block 350 milliseconds. Sinus node recovery times at 600, 500 and 400 milliseconds were 1288, 1365 and 1237 milliseconds. Corresponding corrected sinus node recovery times were within normal limits. Burst stimulation from the right ventricle was performed from 400 milliseconds down to 230 milliseconds. No SVT was induced. Isuprel was started at a high dose and ventricular stimulation was performed with burst stimulation, single extrastimuli, extrastimulation and double extrastimulation. Finally with great difficulty I had short bursts of nonsustained ventricular tachycardia with left bundle branch block morphology when the heart rate reached about 162 beats per minute. However, these appeared to be mostly fusion beats and the QRSs were not very upright on the inferior leads as were noted when he exercised. This was also evidenced by a variation in the morphology of the wide-complex tachycardia consistent with fusion with the sinus beats. Pace mapping was performed based on the best VT morphology noted that was closest to the clinical morphology. An irrigated-tip catheter was placed in the right ventricle and voltage mapping was performed. The voltage map showed that this was a normal healthy heart, in that there was no evidence for any scarring. However, the right ventricle was dilated. Pace mapping showed very poor pace maps. The best pace map we obtained was at about 80%. This was in the anterior RV adjacent to the tricuspid valve. The RVOT area showed extremely poor concordance. However, we doubted this because the morphology of the wide-complex tachycardia with left bundle branch block seemed to be fused beats rather than VT. Isuprel was stopped and the patient was woken up once again; and in the fully awake state, high-dose Isuprel was used and his heart rates went up to 160 beats per minute, but we could not induce any nonsustained or sustained VT. Therefore, in the absence of any mappable rhythm, no further mapping and certainly no ablation was performed. All catheters were removed at the end of the procedure. Intracardiac echo was performed and 3D electroanatomic mapping was performed with voltage mapping at the end. This right ventricle had normal endocardial voltage. No pericardial effusion was noted at the end of the procedure. The patient tolerated procedure well without any acute complications. RESULT: Diagnostic EP study revealin. Normal sinus node function. 2. Normal AV node function. 3. No evidence of slow pathway conduction. 4. No evidence for accessory pathway conduction. 5. Brief runs of nonsustained VT from the right ventricle induced with great difficulty, but these beats suffered from fusion with sinus beats and therefore mapping could not be performed. 6. Catheter manipulation in the right atrium induced an atrial tachycardia and he underwent electrical cardioversion. However, this was not his clinical arrhythmia. Please note that atrial pacing was also performed, heart rates up to 170 to 180 beats per minute to induce the VT but neither with atrial pacing nor with ventricular pacing were we successfully inducing any VT. In the absence of any pure RVOT VT, no ablation was performed since the map was inaccurate. MMODL / IJN: [id number] /
[2020-06-24] MEDS: ASPIRIN 81 MG PO SCH (20:05)
[2020-06-24] MEDS: METOPROLOL TARTRATE 50 MG TAB PO SCH (20:05)
[2020-06-24] MEDS: metFORMIN 500 MG TAB PO SCH (20:05)
[2020-06-24] MEDS: PANTOPRAZOLE 40 MG TABLET PO SCH (20:05)
[2020-06-24 20:39] LABS: Glucose,Whole Blood 114 mg/dL (75-99)
[2020-06-25 06:15] LABS: Glucose,Whole Blood 101 mg/dL (75-99)
[2020-06-25] MEDS: LACTATED RINGERS 1,000 ML IV SCH (07:38)
[2020-06-25] MEDS: SODIUM CHLORIDE 0.9% 1,000 ML IV SCH (07:38)
[2020-06-25 08:54] VITALS: BP 112/75; PULSE 77; RESP 16; TEMP 97.9
[2020-06-25] MEDS: METOPROLOL TARTRATE 50 MG TAB PO SCH (08:55)
[2020-06-25] MEDS: PANTOPRAZOLE 40 MG TABLET PO SCH (08:55)
[2020-06-25] MEDS: ASPIRIN 81 MG PO SCH (08:55)
[2020-06-25] MEDS: metFORMIN 500 MG TAB PO SCH (08:55)
[2020-06-25] MEDS ORDERED: LOSARTAN 25 MG TAB PO SCH (09:00)
[2020-06-25] MEDS ORDERED: ATORVASTATIN 40 MG TAB PO SCH ×2 (09:00→21:00)
[2020-06-25] MEDS ORDERED: NON FORMULARY DRUG (Semaglutide [Rybelsus] 3 MG Tablet) PO SCH (09:00)
[2020-06-25 09:56] LABS: Basophils # (A) 0.1 k/uL (0-0.2); Basophils % (A) 1 %; Eosinophils # (A) 0.2 k/uL (0-0.7); Eosinophils % (A) 2 %; HCT 38.5 % (39.0-53.0); HGB 12.1 gm/dL (13.0-17.5); Lymphocytes # (A) 2.7 k/uL (1.0-4.8); Lymphocytes % (A) 27 %; MCH 25.9 pg (25.0-35.0); MCHC 31.3 g/dL (31.0-37.0); MCV 82.7 fL (80.0-100.0); Mean Platelet Volume 7.6; Monocytes # (A) 0.4 k/uL (0-1.0); Monocytes % (A) 4 %; Neutrophils # (A) 6.5 k/uL (1.3-7.7); Neutrophils % (A) 66 %; Platelet Count 251 k/uL (150-450); RBC 4.66 m/uL (4.30-5.90); RDW 15.2 % (11.5-15.5); WBC 9.8 k/uL (3.8-10.6)
[2020-06-25 10:03] LABS: African American GFR (CKD) >90 (>60 ml/min/1.73 sqM); Anion Gap 7 mmol/L; Blood Urea Nitrogen 16 mg/dL (9-20); Carbon Dioxide 28 mmol/L (22-30); Chloride 103 mmol/L (98-107); Glucose 124 mg/dL (74-99); Non-African American GFR(CKD) >90 (>60 ml/min/1.73 sqM); Potassium 4.7 mmol/L (3.5-5.1); Sodium 138 mmol/L (137-145)
--- NOTE | 2020-06-25 13:18 | P.DS ---
Providers Attending physician: Tanner Cutler Primary care physician: Josiah B. Thomas Hospital Course: Patient is doing well. His groins if he went there is no hematoma minimal tenderness Vitals are stable heart rates are normal he has had PVCs and ventricular couplets with some palpitations but no sustained arrhythmias No chest discomfort dizziness lightheadedness Afebrile 97.9F blood pressure 175 mmHg pulse rate in 70s Breath sounds are clear no rhonchi no crackles Heart sounds S1 and S2 are normal no murmurs or gallops no rub Extremities warm no edema Impression RV DVT No inducible sustained ventricular arrhythmias him a no mappable arrhythmias on EP study Short burst of VT showed fusion with the sinus QRS and therefore could not be mapped accurately Interim noninducible after that one occasion for mapping Normal voltage map of the dilated RV Plan Beta blockers, metoprolol succinate 50 mg daily Cardiac MRI as an outpatient Exercise stress test on metoprolol succinate 50 mrem daily outpatient Patient Condition at Discharge: Stable Plan - Discharge Summary Discharge Rx Participant: No New Discharge Prescriptions: New Metoprolol Succinate (ER) [Toprol Xl] 50 mg PO DAILY #90 tab Continue RX: Omeprazole 20 mg PO BID RX: Atorvastatin [Lipitor] 40 mg PO DAILY #30 tab RX: metFORMIN HCL 1,000 mg PO BID #30 tab RX: Nitroglycerin Sl Tabs [Nitrostat] 0.4 mg SUBLINGUAL Q5M PRN #25 tab PRN Reason: Chest Pain RX: Vitamin B Complex 1 each PO DAILY RX: Turmeric Root Extract [Turmeric] 1,400 mg PO DAILY RX: Cinnamon Bark [Cinnamon] 2,000 mg PO DAILY RX: Losartan Potassium [Cozaar] 25 mg PO DAILY RX: Aspirin 81 mg PO BID RX: Cholecalciferol [Vitamin D3 (25 Mcg = 1000 Iu)] 50 mcg PO DAILY RX: Semaglutide [Rybelsus] 3 mg PO DAILY RX: Cider Vinegar [Apple Cider Vinegar] 1 tab PO DAILY Discontinued RX: Metoprolol Tartrate [Lopressor] 50 mg PO BID #60 tab Discharge Medication List RX: Omeprazole 20 mg PO BID 04/10/20 [History] RX: Atorvastatin [Lipitor] 40 mg PO DAILY #30 tab 04/13/20 [Rx] RX: Nitroglycerin Sl Tabs [Nitrostat] 0.4 mg SUBLINGUAL Q5M PRN #25 tab 04/13/20 [Rx] RX: metFORMIN HCL 1,000 mg PO BID #30 tab 04/13/20 [Rx] RX: Cinnamon Bark [Cinnamon] 2,000 mg PO DAILY 05/13/20 [History] RX: Turmeric Root Extract [Turmeric] 1,400 mg PO DAILY 05/13/20 [History] RX: Vitamin B Complex 1 each PO DAILY 05/13/20 [History] RX: Aspirin 81 mg PO BID 06/22/20 [History] RX: Cholecalciferol [Vitamin D3 (25 Mcg = 1000 Iu)] 50 mcg PO DAILY 06/22/20 [History] RX: Cider Vinegar [Apple Cider Vinegar] 1 tab PO DAILY 06/22/20 [History] RX: Losartan Potassium [Cozaar] 25 mg PO DAILY 06/22/20 [History] RX: Semaglutide [Rybelsus] 3 mg PO DAILY 06/22/20 [History] Metoprolol Succinate (ER) [Toprol Xl] 50 mg PO DAILY #90 tab 06/25/20 [Rx] Follow up Appointment(s)/Referral(s): Tanner Cutler MD [STAFF PHYSICIAN] - 07/01/20 3:00 pm ( with SWISS TYPE SCREW MACHINE OPERATOR) Patient Instructions/Handouts: Cardiac Ablation (DC) Activity/Diet/Wound Care/Special Instructions: Post EP study - Ablation instructions 1. Keep access sites dry for 2 days. 2. No heavy lifting or straining for 2 days. 3. Avoid bending the hips repeatedly for 2 days. 4. You may go up and down stairs slowly Call if the following is noted 1. Bleeding, increasing swelling or pain at the access sites. 2. Increasing chest discomfort, especially upon taking a deep breath. 3. Increasing shortness of breath, at rest or with exertion. 4. Undue cough / phlegm 5. Difficulty or pain while swallowing. 6. Pain or change in color in the extremities. 7. Fever, chills, rigors. 8. Increasing headache or neurologic symptoms. 9. Dizziness, fainting, palpitations Discharge Disposition: HOME SELF-CARE
--- NOTE | 2020-06-25 13:26 | P.DS ---
Providers Expected date of discharge: 06/25/20 Attending physician: Tanner Cutler Primary care physician: Jose Andres Hospital Course: 45-year-old male who has been having recurrent palpitations with exercise. He had exercise-induced ventricular tachycardia. Patient underwent EP study with Dr. Cutler on 06/24/2020. EP study with noninducible VT, therefore no ablation was able to be performed. Patient is stable for discharge home today. Please see EMR for further hospital course details. Discharge Diagnosis Exercise-induced RVOT ventricular tachycardia Morbid obesity Type 2 diabetes Right bundle branch block on twelve-lead ECG but no epsilon waves fractionation Mildly enlarged RV Hypertriglyceridemia with levels greater than 1300 Status sleep apnea using a CPAP mask Nurse practitioner note has been reviewed by physician. Signing provider agrees with the documented findings, assessment, and plan of care. Patient Condition at Discharge: Stable Plan - Discharge Summary Discharge Rx Participant: No New Discharge Prescriptions: New Metoprolol Succinate (ER) [Toprol Xl] 50 mg PO DAILY #90 tab Continue Omeprazole 20 mg PO BID Atorvastatin [Lipitor] 40 mg PO DAILY #30 tab metFORMIN HCL 1,000 mg PO BID #30 tab Nitroglycerin Sl Tabs [Nitrostat] 0.4 mg SUBLINGUAL Q5M PRN #25 tab PRN Reason: Chest Pain Vitamin B Complex 1 each PO DAILY Turmeric Root Extract [Turmeric] 1,400 mg PO DAILY Cinnamon Bark [Cinnamon] 2,000 mg PO DAILY Losartan Potassium [Cozaar] 25 mg PO DAILY Aspirin 81 mg PO BID Cholecalciferol [Vitamin D3 (25 Mcg = 1000 Iu)] 50 mcg PO DAILY Semaglutide [Rybelsus] 3 mg PO DAILY Cider Vinegar [Apple Cider Vinegar] 1 tab PO DAILY Discontinued Metoprolol Tartrate [Lopressor] 50 mg PO BID #60 tab Discharge Medication List Omeprazole 20 mg PO BID 04/10/20 [History] Atorvastatin [Lipitor] 40 mg PO DAILY #30 tab 04/13/20 [Rx] Nitroglycerin Sl Tabs [Nitrostat] 0.4 mg SUBLINGUAL Q5M PRN #25 tab 04/13/20 [Rx] metFORMIN HCL 1,000 mg PO BID #30 tab 04/13/20 [Rx] Cinnamon Bark [Cinnamon] 2,000 mg PO DAILY 05/13/20 [History] Turmeric Root Extract [Turmeric] 1,400 mg PO DAILY 05/13/20 [History] Vitamin B Complex 1 each PO DAILY 05/13/20 [History] Aspirin 81 mg PO BID 06/22/20 [History] Cholecalciferol [Vitamin D3 (25 Mcg = 1000 Iu)] 50 mcg PO DAILY 06/22/20 [History] Cider Vinegar [Apple Cider Vinegar] 1 tab PO DAILY 06/22/20 [History] Losartan Potassium [Cozaar] 25 mg PO DAILY 06/22/20 [History] Semaglutide [Rybelsus] 3 mg PO DAILY 06/22/20 [History] Metoprolol Succinate (ER) [Toprol Xl] 50 mg PO DAILY #90 tab 06/25/20 [Rx] Follow up Appointment(s)/Referral(s): Tanner Cutler MD [STAFF PHYSICIAN] - 07/01/20 3:00 pm ( with PAPER SUPERVISOR) Patient Instructions/Handouts: Cardiac Ablation (DC) Activity/Diet/Wound Care/Special Instructions: Post EP study - Ablation instructions 1. Keep access sites dry for 2 days. 2. No heavy lifting or straining for 2 days. 3. Avoid bending the hips repeatedly for 2 days. 4. You may go up and down stairs slowly Call if the following is noted 1. Bleeding, increasing swelling or pain at the access sites. 2. Increasing chest discomfort, especially upon taking a deep breath. 3. Increasing shortness of breath, at rest or with exertion. 4. Undue cough / phlegm 5. Difficulty or pain while swallowing. 6. Pain or change in color in the extremities. 7. Fever, chills, rigors. 8. Increasing headache or neurologic symptoms. 9. Dizziness, fainting, palpitations Discharge Disposition: HOME SELF-CARE
== END 2020-06-25 11:12 | disposition home or self-care (01) ==
LOC: CATHEP 10:47 → 3NCARDOBS 16:35 → 3SCARD 16:49 → CATHEP 06-25 11:12
PROVIDERS: ATTEND Internal Medicine Clinical Cardiac Electrophysiology
DX: I47.2 Ventricular tachycardia (principal); I45.10 Unspecified right bundle-branch block; I10 Essential (primary) hypertension; E66.01 Morbid (severe) obesity due to excess calories; E11.9 Type 2 diabetes mellitus without complications; K21.9 Gastro-esophageal reflux disease without esophagitis; G47.30 Sleep apnea, unspecified; E78.1 Pure hyperglyceridemia; Z79.82 Long term (current) use of aspirin; Z79.84 Long term (current) use of oral hypoglycemic drugs; Z79.899 Other long term (current) drug therapy; Z99.89 Dependence on other enabling machines and devices; E78.5 Hyperlipidemia, unspecified; Z83.3 Family history of diabetes mellitus; Z82.49 Family history of ischemic heart disease and other diseases of the circulatory system; Z68.42 Body mass index [BMI] 45.0-49.9, adult
CPT/HCPCS: 93623; 93662; 93654; 80048; 85025; C1894; C1769 ×2; C1766; C1730 ×3; C1759; C1732; J2250; J1200; J2001; J3010; J1644; J1170; J0131; J2704

== ENCOUNTER → 2020-09-28 | Day surgery (SDC) | payer BC ==
[2020-09-27 11:18] VITALS: BMI 42.7
[~2020-09-28] MED LIST changes: +LACTATED RINGERS 1,000 ML IV ONE; -LACTATED RINGERS 1,000 ML IV SCH; -LIDOCAINE 1% (10MG/ML) FOR IV START INTRADERMA PRN; +PROPOFOL 10 MG/ML 20 ML VIAL IV ONE
[2020-09-28 07:27] VITALS: RESP 17; TEMP 96.8
[2020-09-28 07:40] LABS: Glucose,Whole Blood 88 mg/dL (75-99)
--- NOTE | 2020-09-28 08:08 | P.PCN ---
Date of Procedure: 09/28/20 Description of Procedure: BRIEF HISTORY: Patient is a 45-year-old pleasant male scheduled for an elective colonoscopy as a part of evaluation of iron deficiency anemia. Patient previously had EGD in 06/03 with biopsies consistent with reflux esophagitis and possible EOE presents for evaluation with colonoscopy denying any prior colonoscopy, or change in bowel habits. PROCEDURE PERFORMED: Colonoscopy with biopsy. PREOPERATIVE DIAGNOSIS: Iron deficiency anemia, no prior colonoscopy. ESTIMATED BLOOD LOSS: Minimal. IV sedation per Anesthesia. PROCEDURE: After informed consent was obtained, the patient, was brought into the endoscopy unit. IV sedation was administered by Anesthesia under continuous monitoring. Digital rectal examination was normal. Initially the Olympus CF-190 flexible video colonoscope was then inserted in the rectum, gradually advanced into the c ecum without any difficulty. Careful examination was performed as the scope was gradually being withdrawn. Ileocecal valve and the appendiceal orifice were visualized and appeared normal. Prep was excellent. Mucosa of the cecum, ascending colon, transverse colon, descending colon, sigmoid colon, and rectum appeared normal, except for a small amount of erythema in the rectum likely related to prep with biopsies of the right and left colon taken. The terminal ileum appeared normal.. Retroflexion was performed in the rectum and no lesions were seen, low-grade internal hemorrhoids. The patient tolerated the procedure well. IMPRESSION: Normal-appearing colon from rectum to cecum and terminal ileum, with random biopsies taken of the right and left colon. Internal hemorrhoids. RECOMMENDATIONS: Findings of this examination were discussed with the patient and his family. Okay to resume diet. Okay to resume medications. Await pathology from biopsies. If iron deficiency persists can consider video capsule endoscopy for further evaluation.
[2020-09-28 08:22] VITALS: BP 130/83; PULSE 77
== END ==
LOC: ORWHC2ENDO 06:40
PROVIDERS: ATTEND Internal Medicine
DX: K63.5 Polyp of colon (principal); K64.8 Other hemorrhoids; D50.9 Iron deficiency anemia, unspecified; I10 Essential (primary) hypertension; E78.5 Hyperlipidemia, unspecified; K21.9 Gastro-esophageal reflux disease without esophagitis; R13.10 Dysphagia, unspecified; G47.33 Obstructive sleep apnea (adult) (pediatric); E11.9 Type 2 diabetes mellitus without complications; Z98.890 Other specified postprocedural states; Z79.84 Long term (current) use of oral hypoglycemic drugs; Z79.899 Other long term (current) drug therapy; Z91.018 Allergy to other foods
CPT/HCPCS: 88305; 45380; J2704

== ENCOUNTER 2022-01-30 07:06 | Emergency (ER) | payer BC ==
--- NOTE | 2022-01-30 07:58 | CT ---
EXAMINATION TYPE: CT brain wo con DATE OF EXAM: 01/30/2022 COMPARISON: none HISTORY: Lt side head pain CT DLP: 1111.[address] of the brain was performed. The ventricles, basal cisterns and sulci overlying the cerebral convexities demonstrate a normal appe arance. There is no evidence for intracranial hemorrhage or sulcal effacement. No mass effects are seen. Osseous calvarium is intact. If symptoms persist consider MRI as clinically warranted. IMPRESSION: 1. No acute intracranial process is seen at this time.
--- NOTE | 2022-01-30 08:40 | ED ---
Headache HPI - General Chief Complaint: Headache Stated Complaint: Pressure/throbbing in head Time Seen by Provider: 01/30/22 07:25 Source: patient, RN notes reviewed Mode of arrival: ambulatory Limitations: no limitations - History of Present Illness Initial Comments: This is a 46-year-old male presents emergency Department chief complaint left- sided headache. Patient states that he's had pressure, throbbing sensation last 2 months. He states he notices with exertion that he gets this sharp throbbing pain outside of his head. Patient is concerned that he has something wrong states that he eats talk to his primary physician who told him it is from his eyes because he had some uncontrolled diabetes. Patient denies any. Chills no neck pain or neck stiffness no focal weakness states he did follow-up with ophthalmology: Was not related to his eyes. - Related Data Home Medications Medication Instructions Recorded Confirmed Omeprazole 20 mg PO BID-W/MEALS 04/10/20 09/27/20 Cinnamon Bark [Cinnamon] 2,000 mg PO DAILY 05/13/20 09/27/20 Turmeric Root Extract [Turmeric] 1,400 mg PO DAILY 05/13/20 09/27/20 Cholecalciferol [Vitamin D3 (25 50 mcg PO DAILY 06/22/20 09/27/20 Mcg = 1000 Iu)] Cider Vinegar [Apple Cider Vinegar] 1 tab PO DAILY 06/22/20 09/27/20 Losartan Potassium [Cozaar] 25 mg PO DAILY 06/22/20 09/27/20 Atorvastatin [Lipitor] 40 mg PO HS 09/27/20 09/27/20 Icosapent Ethyl [Vascepa] 2 gm PO BID 09/27/20 09/27/20 Semaglutide [Rybelsus] 7 mg PO DAILY 09/27/20 09/27/20 Previous Rx's Medication Instructions Recorded metFORMIN HCL [Glucophage] 1,000 mg PO BID #30 tab 04/13/20 Metoprolol Succinate (ER) [Toprol 50 mg PO DAILY #90 tab 06/25/20 Xl] Allergies Allergy/AdvReac Type Severity Reaction Status Date / Time Captain Crunch Cereal Allergy Unknown Rash/Hives Uncoded 01/30/22 07:21 Review of Systems ROS Statement: Those systems with pertinent positive or pertinent negative responses have been documented in the HPI. ROS Other: All systems not noted in ROS Statement are negative. Past Medical History Past Medical History: Diabetes Mellitus, GERD/Reflux, Hyperlipidemia, Hypertension Additional Past Medical History / Comment(s): V-TACH, MILD SLEEP APNEA, 60 # WT LOSS SINCE MARCH 2020 (INTENTIONAL)., STATES LOW IRON AND HEMOGLOBIN., PAST HX OF DYSPHAGIA WITH SOME FOODS. History of Any Multi-Drug Resistant Organisms: None Reported Past Surgical History: Cardiac Ablation Additional Past Surgical History / Comment(s): surgery for nosebleeds when a child, EGD. Past Anesthesia/Blood Transfusion Reactions: No Reported Reaction Past Psychological History: No Psychological Hx Reported Smoking Status: Never smoker Past Alcohol Use History: None Reported Past Drug Use History: None Reported - Past Family History Mother Family Medical History: Diabetes Mellitus, Hypertension Additional Family Medical History / Comment(s): vertigo Father Family Medical History: Unable to Obtain Additional Family Medical History / Comment(s): states unknown hx of father General Exam Limitations: no limitations General appearance: alert, in no apparent distress Head exam: Present: atraumatic, normocephalic, normal inspection Eye exam: Present: normal appearance, PERRL, EOMI. Absent: scleral icterus, conjunctival injection, periorbital swelling ENT exam: Present: normal exam, normal oropharynx, mucous membranes moist Neck exam: Present: normal inspection, full ROM. Absent: tenderness, meningismus, lymphadenopathy Respiratory exam: Present: normal lung sounds bilaterally. Absent: respiratory distress, wheezes, rales, rhonchi, stridor Cardiovascular Exam: Present: regular rate, normal rhythm, normal heart sounds. Absent: systolic murmur, diastolic murmur, rubs, gallop, clicks Extremities exam: Present: normal inspection, full ROM, normal capillary refill. Absent: tenderness, pedal edema, joint swelling, calf tenderness Neurological exam: Present: alert, oriented X3, CN II-XII intact, reflexes normal. Absent: motor sensory deficit Skin exam: Present: warm, dry, intact, normal color. Absent: rash Course Vital Signs 01/30/22 01/30/22 07:18 09:59 Temperature 98.6 F 97.6 F Pulse Rate 66 62 Respiratory 20 16 Rate Blood Pressure 146/99 128/82 O2 Sat by Pulse 99 99 Oximetry Medical Decision Making - Medical Decision Making CT her brain and CT of the head was performed no acute findings. Patient will be discharged in stable condition patient follow-up PCP return parameters were discussed. - Lab Data Result diagrams: 01/30/22 08:33 Lab Results 01/30/22 Range/Units 08:33 Sodium 138 (137-145) mmol/L Potassium 4.3 (3.5-5.1) mmol/L Chloride 105 (98-107) mmol/L Carbon Dioxide 23 (22-30) mmol/L Anion Gap 10 mmol/L BUN 15 (9-20) mg/dL Creatinine 0.80 (0.66-1.25) mg/dL Est GFR (CKD-EPI)AfAm >90 (>60 ml/min/1.73 sqM) Est GFR (CKD-EPI)NonAf >90 (>60 ml/min/1.73 sqM) Glucose 119 H (74-99) mg/dL Calcium 8.8 (8.4-10.2) mg/dL Disposition Clinical Impression: Frequent headaches Disposition: HOME SELF-CARE Condition: Stable Instructions (If sedation given, give patient instructions): Acute Headache (ED) Additional Instructions: Please return to the Emergency Department if symptoms worsen or any other concerns. Is patient prescribed a controlled substance at d/c from ED?: No Referrals: Jose Andres MD [Primary Care Provider] - 1-2 days Time of Disposition: 10:30
[2022-01-30 08:50] LABS: African American GFR (CKD) >90 (>60 ml/min/1.73 sqM); Anion Gap 10 mmol/L; Blood Urea Nitrogen 15 mg/dL (9-20); Calcium 8.8 mg/dL (8.4-10.2); Carbon Dioxide 23 mmol/L (22-30); Chloride 105 mmol/L (98-107); Glucose 119 mg/dL (74-99); Non-African American GFR(CKD) >90 (>60 ml/min/1.73 sqM); Potassium 4.3 mmol/L (3.5-5.1); Sodium 138 mmol/L (137-145)
[2022-01-30 09:59] VITALS: BP 128/82; PULSE 62; RESP 16; TEMP 97.6
--- NOTE | 2022-01-30 10:24 | CT ---
EXAMINATION TYPE: CT [facility] [place] [facility] [place] DATE OF EXAM: 01/30/2022 INDICATION: Pain CT DLP: 517.1 mGy.cm Automated Exposure Control for Dose Reduction was Utilized. TECHNIQUE AND CONTRAST: CTA of the intracranial arteries is performed with IV Contrast, patient injected with 88 mL of Isovue 370. 3-D reconstruction images were generated on an independent workstation and reviewed. COMPARISON: CT scan of the brain performed earlier same day FINDINGS: Normal caliber and enhancement of the intracranial arteries without significant stenosis, occlusion, dissection, aneurysm or AV malformation. Patent major intracranial venous sinuses. No intracranial ab normal enhancement. IMPRESSION: Unremarkable CTA of the intracranial arteries.
== END 2022-01-30 10:39 | disposition home or self-care (01) ==
LOC: EC 07:06
DX: R51.9 Headache, unspecified (principal); E11.9 Type 2 diabetes mellitus without complications; I10 Essential (primary) hypertension; K21.9 Gastro-esophageal reflux disease without esophagitis; E78.5 Hyperlipidemia, unspecified; Z88.8 Allergy status to other drugs, medicaments and biological substances; Z79.899 Other long term (current) drug therapy; Z79.84 Long term (current) use of oral hypoglycemic drugs
CPT/HCPCS: 36415; 80048; 70496; 70450; 99284; Q9967

== ENCOUNTER 2022-09-01 11:43 | Observation (INO) | payer BC ==
[2022-09-01] MEDS ORDERED: SODIUM CHLORIDE 0.9% 500 ML 500 ML IV STA (12:42)
[2022-09-01] MEDS ORDERED: ASPIRIN 81 MG PO STA (12:42)
[2022-09-01] MEDS ORDERED: NITROGLYCERIN SL TABS 0.4 MG TAB SUBLINGUAL STA (12:42)
[2022-09-01] MEDS ORDERED: PANTOPRAZOLE 40 MG/10 ML VIAL IVP STA (12:43)
--- NOTE | 2022-09-01 12:49 | ED ---
General Adult HPI - General Chief complaint: Chest Pain Stated complaint: chest tightness, stomach pain Time Seen by Provider: 09/01/22 12:31 Source: patient, RN notes reviewed, old records reviewed Mode of arrival: ambulatory - History of Present Illness Initial comments: 47-year-old male presents to the emergency room with complaints of chest tightness that started last night while he was at work. Patient states that he is under stress however he was lifting several boxes when the pain occurred. Patient states the pain continues to be tight in his chest, has some shortness of breath, and he did have an episode of nausea vomiting today. Has also had some diarrhea but denies fevers. States his daughter recently recovered from RSV last week. Patient does have a history of diabetes, hypertension and V. tach. He did undergo an ablation with Dr. Cutler in June 2020 which he states did not work. He is currently taking metoprolol however he did not take it today. -: days(s) (1) Location: chest Radiation: non-radiation Severity scale (1-10): 7 Quality: other (tight) Consistency: constant Improves with: none Associated Symptoms: nausea/vomiting, other (diarrhea) Treatments Prior to Arrival: NSAID - Related Data Home Medications Medication Instructions Recorded Confirmed Omeprazole 20 mg PO DAILY 04/10/20 09/01/22 Atorvastatin [Lipitor] 40 mg PO DAILY 09/27/20 09/01/22 Metoprolol Succinate [Toprol XL] 50 mg PO DAILY 01/30/22 09/01/22 icosapent ethyL [Icosapent Ethyl] 1 gm PO DAILY 01/30/22 09/01/22 lisinopriL [Zestril] 5 mg PO DAILY 01/30/22 09/01/22 Cholecalciferol [Vitamin D3 (25 25 mcg PO DAILY 09/01/22 09/01/22 Mcg = 1000 Iu)] Cinnamon Bark [Cinnamon] 1,000 mg PO DAILY 09/01/22 09/01/22 metFORMIN HCL ER [Glucophage XR] 500 mg PO DAILY 09/01/22 09/01/22 Allergies Allergy/AdvReac Type Severity Reaction Status Date / Time Captain Crunch Cereal Allergy Unknown Rash/Hives Uncoded 09/01/22 13:57 Review of Systems ROS Statement: Those systems with pertinent positive or pertinent negative responses have been documented in the HPI. ROS Other: All systems not noted in ROS Statement are negative. Past Medical History Past Medical History: Diabetes Mellitus, GERD/Reflux, Hyperlipidemia, Hypertension Additional Past Medical History / Comment(s): V-TACH, MILD SLEEP APNEA, 60 # WT LOSS SINCE MARCH 2020 (INTENTIONAL)., STATES LOW IRON AND HEMOGLOBIN., PAST HX OF DYSPHAGIA WITH SOME FOODS. History of Any Multi-Drug Resistant Organisms: None Reported Past Surgical History: Cardiac Ablation Additional Past Surgical History / Comment(s): surgery for nosebleeds when a child, EGD. Past Anesthesia/Blood Transfusion Reactions: No Reported Reaction Past Psychological History: No Psychological Hx Reported Smoking Status: Never smoker Past Alcohol Use History: None Reported Past Drug Use History: None Reported - Past Family History Mother Family Medical History: Diabetes Mellitus, Hypertension Additional Family Medical History / Comment(s): vertigo Father Family Medical History: Unable to Obtain Additional Family Medical History / Comment(s): states unknown hx of father General Exam General appearance: alert, in no apparent distress Head exam: Present: atraumatic Eye exam: Present: normal appearance. Absent: scleral icterus, conjunctival injection, periorbital swelling ENT exam: Present: normal exam, normal oropharynx, mucous membranes moist Neck exam: Absent: tenderness, meningismus Respiratory exam: Present: normal lung sounds bilaterally. Absent: respiratory distress, wheezes, rales, rhonchi, stridor, chest wall tenderness, accessory muscle use Cardiovascular Exam: Present: regular rate, normal heart sounds GI/Abdominal exam: Present: soft Extremities exam: Present: full ROM, normal capillary refill. Absent: tenderness, pedal edema Back exam: Present: normal inspection. Absent: rash noted Neurological exam: Present: alert, oriented X3, normal gait Psychiatric exam: Present: normal affect, normal mood Skin exam: Present: warm, dry, normal color. Absent: cyanosis, diaphoretic, petechiae, pallor Course Vital Signs 09/01/22 09/01/22 09/01/22 11:46 13:30 14:00 Temperature 97.6 F Pulse Rate 62 62 63 Respiratory 20 Rate Blood Pressure 154/77 129/79 135/72 O2 Sat by Pulse 100 95 95 Oximetry EKG Findings - EKG Results: EKG: sinus rhythm (Sinus rhythm with a ventricular rate of 62, MT interval 0.188, QRS 0.155, QTC 0.430, normal axis), not changed from: (06/25/2020) Medical Decision Making - Medical Decision Making Patient presents with nausea and chest tightness with some shortness of breath and an episode of vomiting today. Pain came on while he was at work last night and has been persistent. Pain is not reproducible. Denies any diaphoresis. He does have a history of V. tach, he states had a failed ablation treatment with Dr. Hitchcock in 2019. EKG reviewed by me shows sinus rhythm with a right bundle branch block. No significant change compared to old 06/25/2020 Chest x-ray interpreted by me shows no consolidation. Radiologist interpretation no acute cardiopulmonary disease or process. Pulmonary vascularity unremarkable. Patient did get some relief with aspirin and nitroglycerin. He was scheduled to see his religious educator in April of this year and he did cancel that appointment. Due to his cardiac history he will be placed in observation to have echo and cardiology consult. Case discussed with Dr. Srivastava - Lab Data Result diagrams: 09/01/22 14:00 09/01/22 14:00 Lab Results 09/01/22 09/01/22 09/01/22 Range/Units 12:58 14:00 14:00 WBC 13.7 H (3.8-10.6) k/uL RBC 4.78 (4.30-5.90) m/uL Hgb 13.6 (13.0-17.5) gm/dL Hct 39.1 (39.0-53.0) % MCV 81.7 (80.0-100.0) fL MCH 28.5 (25.0-35.0) pg MCHC 34.9 (31.0-37.0) g/dL RDW 14.2 (11.5-15.5) % Plt Count 227 (150-450) k/uL MPV 8.2 Neutrophils % 75 % Lymphocytes % 18 % Monocytes % 5 % Eosinophils % 1 % Basophils % 0 % Neutrophils # 10.2 H (1.3-7.7) k/uL Lymphocytes # 2.5 (1.0-4.8) k/uL Monocytes # 0.7 (0-1.0) k/uL Eosinophils # 0.2 (0-0.7) k/uL Basophils # 0.1 (0-0.2) k/uL PT 10.4 (9.0-12.0) sec INR 0.9 (<1.2) APTT 24.2 (22.0-30.0) sec Sodium (137-145) mmol/L Potassium (3.5-5.1) mmol/L Chloride (98-107) mmol/L Carbon Dioxide (22-30) mmol/L Anion Gap mmol/L BUN (9-20) mg/dL Creatinine (0.66-1.25) mg/dL Est GFR (CKD-EPI)AfAm (>60 ml/min/1.73 sqM) Est GFR (CKD-EPI)NonAf (>60 ml/min/1.73 sqM) Glucose (74-99) mg/dL Calcium (8.4-10.2) mg/dL Magnesium (1.6-2.3) mg/dL Total Bilirubin (0.2-1.3) mg/dL AST (17-59) U/L ALT (4-49) U/L Alkaline Phosphatase (38-126) U/L Troponin I (0.000-0.034) ng/mL Total Protein (6.3-8.2) g/dL Albumin (3.5-5.0) g/dL Influenza Type A (PCR) Not Detected (Not Detectd) Influenza Type B (PCR) Not Detected (Not Detectd) RSV (PCR) Not Detected (Not Detectd) SARS-CoV-2 (PCR) Not Detected (Not Detectd) 09/01/22 09/01/22 Range/Units 14:00 14:00 WBC (3.8-10.6) k/uL RBC (4.30-5.90) m/uL Hgb (13.0-17.5) gm/dL Hct (39.0-53.0) % MCV (80.0-100.0) fL MCH (25.0-35.0) pg MCHC (31.0-37.0) g/dL RDW (11.5-15.5) % Plt Count (150-450) k/uL MPV Neutrophils % % Lymphocytes % % Monocytes % % Eosinophils % % Basophils % % Neutrophils # (1.3-7.7) k/uL Lymphocytes # (1.0-4.8) k/uL Monocytes # (0-1.0) k/uL Eosinophils # (0-0.7) k/uL Basophils # (0-0.2) k/uL PT (9.0-12.0) sec INR (<1.2) APTT (22.0-30.0) sec Sodium 136 L (137-145) mmol/L Potassium 4.1 (3.5-5.1) mmol/L Chloride 106 (98-107) mmol/L Carbon Dioxide 24 (22-30) mmol/L Anion Gap 6 mmol/L BUN 16 (9-20) mg/dL Creatinine 0.74 (0.66-1.25) mg/dL Est GFR (CKD-EPI)AfAm >90 (>60 ml/min/1.73 sqM) Est GFR (CKD-EPI)NonAf >90 (>60 ml/min/1.73 sqM) Glucose 120 H (74-99) mg/dL Calcium 8.6 (8.4-10.2) mg/dL Magnesium 1.7 (1.6-2.3) mg/dL Total Bilirubin 0.6 (0.2-1.3) mg/dL AST 24 (17-59) U/L ALT 26 (4-49) U/L Alkaline Phosphatase 57 (38-126) U/L Troponin I <0.012 (0.000-0.034) ng/mL Total Protein 6.6 (6.3-8.2) g/dL Albumin 3.9 (3.5-5.0) g/dL Influenza Type A (PCR) (Not Detectd) Influenza Type B (PCR) (Not Detectd) RSV (PCR) (Not Detectd) SARS-CoV-2 (PCR) (Not Detectd) Disposition Clinical Impression: Chest pain Disposition: ADMITTED IP TO THIS [facility] Decision Date: 09/01/22 Decision Time: 14:59
--- NOTE | 2022-09-01 13:17 | XR ---
EXAMINATION TYPE: XR chest 2V DATE OF EXAM: 09/01/2022 1:11 PM COMPARISON: Chest radiographs from 04/10/2020 TECHNIQUE: XR chest 2V Frontal and lateral views of the chest. CLINICAL INDICATION:Male, 47 years old with history of Chest Pain; FINDINGS: Lungs/Pleura: There is no evidence of pleural effusion, focal consolidation, or pneumothorax. Pulmonary vascularity: Unremarkable. Heart/mediastinum: Cardiomediastinal silhouette is unremarkable. Musculoskeletal: No acute osseous pathology. IMPRESSION: No acute cardiopulmonary disease/process.
[2022-09-01] MEDS ORDERED: NITROGLYCERIN SL TABS 0.4 MG TAB SUBLINGUAL PRN ×2 (13:47→15:23)
[2022-09-01 14:13] LABS: Basophils # (A) 0.1 k/uL (0-0.2); Basophils % (A) 0 %; Eosinophils # (A) 0.2 k/uL (0-0.7); Eosinophils % (A) 1 %; HCT 39.1 % (39.0-53.0); HGB 13.6 gm/dL (13.0-17.5); Lymphocytes # (A) 2.5 k/uL (1.0-4.8); Lymphocytes % (A) 18 %; MCH 28.5 pg (25.0-35.0); MCHC 34.9 g/dL (31.0-37.0); MCV 81.7 fL (80.0-100.0); Mean Platelet Volume 8.2; Monocytes # (A) 0.7 k/uL (0-1.0); Monocytes % (A) 5 %; Neutrophils # (A) 10.2 k/uL (1.3-7.7); Neutrophils % (A) 75 %; Platelet Count 227 k/uL (150-450); RBC 4.78 m/uL (4.30-5.90); RDW 14.2 % (11.5-15.5); WBC 13.7 k/uL (3.8-10.6)
[2022-09-01 14:24] LABS: INR 0.9 (<1.2); Partial Thromboplastin Time 24.2 sec (22.0-30.0); Prothrombin Time 10.4 sec (9.0-12.0)
[2022-09-01 14:25] LABS: ALT 26 U/L (4-49); AST 24 U/L (17-59); African American GFR (CKD) >90 (>60 ml/min/1.73 sqM); Albumin 3.9 g/dL (3.5-5.0); Alkaline Phosphatase 57 U/L (38-126); Anion Gap 6 mmol/L; Blood Urea Nitrogen 16 mg/dL (9-20); Calcium 8.6 mg/dL (8.4-10.2); Carbon Dioxide 24 mmol/L (22-30); Chloride 106 mmol/L (98-107); Glucose 120 mg/dL (74-99); Magnesium 1.7 mg/dL (1.6-2.3); Non-African American GFR(CKD) >90 (>60 ml/min/1.73 sqM); Potassium 4.1 mmol/L (3.5-5.1); Sodium 136 mmol/L (137-145); Total Bilirubin 0.6 mg/dL (0.2-1.3); Total Protein 6.6 g/dL (6.3-8.2)
[2022-09-01] MEDS ORDERED: NALOXONE 0.4 MG/ML 1 ML VIAL IV PRN (15:21)
[2022-09-01] MEDS ORDERED: ACETAMINOPHEN TAB 325 MG TAB PO PRN (15:21)
[2022-09-01] MEDS ORDERED: ONDANSETRON 4 MG/2 ML VIAL IVP STA (15:58)
[2022-09-01] MEDS ORDERED: DEXTROSE 50% SYRINGE 50 ML IVP PRN ×2 (16:40)
[2022-09-01] MEDS ORDERED: MAG HYDROX/AL HYDROX/SIMETH 30 ML, HYOSCYAMINE ELIXIR 10 ML, LIDOCAINE VISCOUS 2% 10 ML PO ONE ×3 (17:17)
--- NOTE | 2022-09-01 17:19 | P.HPIM ---
History of Present Illness H&P Date: 09/01/22 History of Presenting Illness: Patient is a very pleasant 47 show male with a past medical history of hypertension, hyperlipidemia, diabetes mellitus, and history of V. tach status post cardiac ablation. He presented to the emergency department with a chief complaint of chest pain. Patient reports this pain began yesterday while working. Patient describes this pain as a tightness to his midsternal chest accompanied by nausea and indigestion. Patient reports his pain relieves with rest and worsens with movement and bending. He denies having any headache, lightheadedness, dizziness, palpitations, shortness of breath, abdominal pain, vomiting, or experiencing any numbness/tingling/weakness/swelling in his extremities. Patient underwent full evaluation in the emergency department. CBC showed mild leukocytosis with WBC count 13.7 and, coags and CMP unremarkable. Influenza A, influenza B, RSV, and Covid are negative. Troponin less than 0.012. EKG showing normal sinus rhythm at 62 bpm with a right bundle branch block, other than rate this is unchanged from EKG completed 06/25/20. Chest x-ray negative for acute cardiopulmonary process. Patient admitted under our services with consultation to cardiology. Review of systems: Pertinent positives and negatives as discussed in HPI, a complete review of systems was performed and all other systems are negative. Physical exam: Vital signs reviewed and stable. General: Nontoxic, no distress and appears stated age. Obese. Derm: Skin warm and dry, normal coloration for ethnicity. Head: Atraumatic, normocephalic and symmetric. Eyes: EOMs intact, no lid lag, and anicteric sclera Mouth: no lip lesions, mucus membranes moist Cardiovascular: regular rate and rhythm with normal S1S2, no murmur, positive po sterior tibial pulses bilaterally, and cap refill < 2 seconds. Lungs: Respirations even, regular, and unlabored on room air. Lungs CTA bilaterally, no rhonchi, no rales, no wheezing, and no accessory muscle usage. Abdominal: soft, nontender to palpation, no guarding, no appreciable organomegaly Ext: ROM intact. No gross muscle atrophy, no edema, no contractures Neuro: Speech clear, face symmetrical and CN II-XII grossly intact with no noted focal neuro deficits Psych: Alert and oriented to person, place, time, and situation. Appropriate and pleasant affect. Assessment and Plan of Care: Chest pain, rule out acute coronary event History of V. tach status post cardiac ablation -Cardiology consult, appreciate further recommendations -Telemetry monitoring -Trend troponins -Cardiac diet, NPO at midnight -Aspirin, atorvastatin, and metoprolol -Lipid profile with a.m. labs. -Echocardiogram Indigestion, GERD -GI cocktail 1 dose -Protonix 40 mg daily Hypertension -Monitor vital signs and continue daily medication regimen with lisinopril and metoprolol. Hyperlipidemia -Continue daily medication regimen with atorvastatin. Diabetes mellitus -Hold Glucophage in place patient on NovoLog sliding scale glycemic protocol. The patient is admitted with an anticipated less than 2 midnight stay for evaluation of chest pain. CODE STATUS: Full code DVT prophylaxis: Lovenox Discussed with: pt, pt's and RN Anticipated discharge date: tomorrow Anticipated discharge place: Home A total of 45 minutes was spent on the care of this complex patient more than 50% of the time was spent in counseling and care coordination. Justin Fox NP rendered care for this patient independently, reviewed the findings and plan as documented in the note above. I did not physically speak with or examine the patient on this date. Past Medical History Past Medical History: Diabetes Mellitus, GERD/Reflux, Hyperlipidemia, Hype rtension Additional Past Medical History / Comment(s): V-TACH, MILD SLEEP APNEA, 60 # WT LOSS SINCE MARCH 2020 (INTENTIONAL)., STATES LOW IRON AND HEMOGLOBIN., PAST HX OF DYSPHAGIA WITH SOME FOODS. History of Any Multi-Drug Resistant Organisms: None Reported Past Surgical History: Cardiac Ablation Additional Past Surgical History / Comment(s): surgery for nosebleeds when a child, EGD. Past Anesthesia/Blood Transfusion Reactions: No Reported Reaction Past Psychological History: No Psychological Hx Reported Smoking Status: Never smoker Past Alcohol Use History: None Reported Past Drug Use History: None Reported - Past Family History Mother Family Medical History: Diabetes Mellitus, Hypertension Additional Family Medical History / Comment(s): vertigo Father Family Medical History: Unable to Obtain Additional Family Medical History / Comment(s): states unknown hx of father Medications and Allergies Home Medications Medication Instructions Recorded Confirmed Type Omeprazole 20 mg PO DAILY 04/10/20 09/01/22 History Atorvastatin [Lipitor] 40 mg PO DAILY 09/27/20 09/01/22 History Metoprolol Succinate [Toprol XL] 50 mg PO DAILY 01/30/22 09/01/22 History icosapent ethyL [Icosapent Ethyl] 1 gm PO DAILY 01/30/22 09/01/22 History lisinopriL [Zestril] 5 mg PO DAILY 01/30/22 09/01/22 History Cholecalciferol [Vitamin D3 (25 25 mcg PO DAILY 09/01/22 09/01/22 History Mcg = 1000 Iu)] Cinnamon Bark [Cinnamon] 1,000 mg PO DAILY 09/01/22 09/01/22 History metFORMIN HCL ER [Glucophage XR] 500 mg PO DAILY 09/01/22 09/01/22 History Allergies Allergy/AdvReac Type Severity Reaction Status Date / Time Captain Crunch Cereal Allergy Unknown Rash/Hives Uncoded 09/01/22 13:57 Physical Exam Osteopathic Statement: *. No significant issues noted on an osteopathic structural exam other than those noted in the History and Physical/Consult. Vitals: Vital Signs Temp Pulse Resp BP Pulse Ox 09/01/22 14:00 63 135/72 95 09/01/22 13:30 62 129/79 95 09/01/22 11:46 97.6 F 62 20 154/77 100 Intake and Output 09/01/22 09/01/22 09/01/22 06:59 14:59 22:59 Other: Weight 136.078 kg Results CBC & Chem 7: 09/01/22 14:00 09/01/22 14:00 Labs: Abnormal Lab Results - Last 24 Hours (Table) 09/01/22 09/01/22 Range/Units 14:00 14:00 WBC 13.7 H (3.8-10.6) k/uL Neutrophils # 10.2 H (1.3-7.7) k/uL Sodium 136 L (137-145) mmol/L Glucose 120 H (74-99) mg/dL
[2022-09-01 17:28] LABS: Glucose,Whole Blood 110 mg/dL (70-110)
[2022-09-01] MEDS: INSULIN ASPART (NovoLOG) 100 UNIT/ML VIAL SQ SCH ×2 (18:38→20:29)
[2022-09-01 20:17] LABS: Glucose,Whole Blood 145 mg/dL (70-110)
[2022-09-02 06:23] LABS: Glucose,Whole Blood 112 mg/dL (70-110)
[2022-09-02] MEDS: INSULIN ASPART (NovoLOG) 100 UNIT/ML VIAL SQ SCH ×2 (06:41→12:10)
[2022-09-02 07:42] LABS: HCT 41.5 % (39.0-53.0); HGB 14.1 gm/dL (13.0-17.5); MCH 27.9 pg (25.0-35.0); MCHC 33.9 g/dL (31.0-37.0); MCV 82.3 fL (80.0-100.0); Mean Platelet Volume 8.1; Platelet Count 216 k/uL (150-450); RBC 5.05 m/uL (4.30-5.90); RDW 14.1 % (11.5-15.5); WBC 14.3 k/uL (3.8-10.6)
[2022-09-02 07:52] VITALS: PULSE 74; RESP 16
[2022-09-02 08:14] LABS: ALT 24 U/L (4-49); AST 20 U/L (17-59); African American GFR (CKD) >90 (>60 ml/min/1.73 sqM); Albumin 4.2 g/dL (3.5-5.0); Albumin/Globulin Ratio 1.4; Alkaline Phosphatase 65 U/L (38-126); Anion Gap 2 mmol/L; Blood Urea Nitrogen 11 mg/dL (9-20); Calcium 8.7 mg/dL (8.4-10.2); Carbon Dioxide 25 mmol/L (22-30); Chloride 104 mmol/L (98-107); Globulin 2.9 g/dL; Glucose 119 mg/dL (74-99); Non-African American GFR(CKD) >90 (>60 ml/min/1.73 sqM); Sodium 131 mmol/L (137-145); Total Bilirubin 1.1 mg/dL (0.2-1.3); Total Protein 7.1 g/dL (6.3-8.2)
[2022-09-02] MEDS ORDERED: NON FORMULARY DRUG (Icosapent Ethyl [Icosapent Ethyl] 1 GM Capsule) PO SCH (09:00)
[2022-09-02] MEDS ORDERED: metFORMIN 500 MG TAB PO SCH (09:00)
[2022-09-02] MEDS ORDERED: METOPROLOL SUCCINATE (ER) 50 MG TAB.ER.24H PO SCH (09:00)
[2022-09-02] MEDS ORDERED: CHOLECALCIFEROL 25 MCG (1000 IU) TABLET PO SCH (09:00)
[2022-09-02] MEDS ORDERED: PANTOPRAZOLE 40 MG/10 ML VIAL IV SCH (09:00)
[2022-09-02] MEDS ORDERED: PANTOPRAZOLE 40 MG TABLET PO SCH (09:00)
[2022-09-02] MEDS ORDERED: ENOXAPARIN 40 MG/0.4 ML SYRINGE SQ SCH (09:00)
[2022-09-02] MEDS ORDERED: lisinopriL 5 MG TAB PO SCH (09:00)
[2022-09-02] MEDS ORDERED: ATORVASTATIN 40 MG TAB PO SCH (09:00)
[2022-09-02 11:43] LABS: Glucose,Whole Blood 142 mg/dL (70-110)
--- NOTE | 2022-09-02 12:49 | CONS ---
CONSULTATION CHIEF COMPLAINT: Chest pain. HISTORY OF PRESENT ILLNESS: Phani is a 47-year-old gentleman with history of suspected ventricular tachycardia status post EP study, diabetes, hypertension, dyslipidemia, who presents to the hospital complaining of chest tightness. He describes it as a pressure-like sensation in the chest that he usually gets when he is stressed at work, but is relieved with rest. Yesterday, he had discomfort; when he rested, it did not go away. Hence, he came to the hospital and got admitted. He also has a queasy sensation in his stomach initially in the upper abdomen and subsequently in the lower abdomen that is associated with nausea and not feeling well. These symptoms have all resolved at the time of my evaluation. An EKG showed sinus rhythm with right bundle branch block. Lab showed that 3 sets of troponins are negative, hemoglobin is 14.1, creatinine is 0.7, potassium is 4. The patient's chest discomfort is sharp, atypical, and probably noncardiac. He tells me that he had a negative stress test at the beginning of this year, I do not have the record with me. He certainly had a stress test 2 years ago at this hospital that was unremarkable. There is no prior history of cardiac catheterization, angioplasty, or bypass surgery. PAST MEDICAL HISTORY: Significant for ventricular tachycardia, rrs-uzfwtxh-[id number] diabetes, hypertension, and dyslipidemia. CURRENT MEDICATIONS: 1. Glucophage. 2. Zestril. 3. Omeprazole. 4. Toprol-XL. 5. Lipitor. ALLERGIES: There are no known drug allergies. FAMILY HISTORY: Negative for premature coronary artery disease. SOCIAL HISTORY: Negative for current smoking, EtOH abuse, or drug abuse. REVIEW OF SYSTEMS: HEENT: Unremarkable. CARDIAC: As described above. RESPIRATORY: As described above. GI: Negative. GENITOURINARY: Negative. ALLERGY/IMMUNOLOGY: Negative. SKIN: Negative. MUSCULOSKELETAL: Negative. ENDOCRINE: Negative. DERM: Negative. CONSTITUTIONAL: Negative. ONCOLOGICAL: Negative. 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 Rest of the system review is not relevant. PHYSICAL EXAMINATION: GENERAL: Comfortable at rest. VITAL SIGNS: Stable. NECK: There is no jugular venous distention. Carotid upstroke is normal. There is no bruit. CHEST: Reveals good air entry bilaterally. HEART: Reveals first and second heart sounds. No gallop. No murmur. No rub. ABDOMEN: Soft, nontender. EXTREMITIES: Did not reveal any edema. Peripheral pulses are felt. LABORATORY DATA: Show a hemoglobin of 14.1, platelet count is 216. Potassium is 4, creatinine is 0.75. Troponins are negative. ASSESSMENT: 1. Precordial chest pain. 2. Hypertension. 3. Dyslipidemia. 4. Usb-cezxqwc-mztramlxd diabetes. 5. Ventricular tachycardia. PLAN: The patient's chest pain is sharp, atypical, probably noncardiac. Myocardial infarction is ruled out. I will obtain a 2D echo this morning, but if that is unremarkable, he can be discharged home, an outpatient followup arranged through Dr. Cutler's office and consider an outpatient stress test. MMODL / IJN: [id number] /
[2022-09-02 13:56] VITALS: BP 156/94; TEMP 98.2
--- NOTE | 2022-09-02 13:59 | CA ---
Transthoracic Echo Report Name: Phani Freitas Age: 47 Gender: M : 1975 Exam Date: 09/02/2022 12:06 Exam Location: [facility] Ht (in): 68 Wt (lb): 300 Ordering Physician: Phan Long Attending/Referring Phys: Social Sciences Research Scientist Gayle Shah RDCS Procedure CPT: Indications: Chest Pain Cardiac Hx: Technical Quality: Technically difficult study Contrast 1: Lumason Total Dose (mL): 4 Contrast 2: Total Dose (mL): MEASUREMENTS (Male / Female) Normal Values 2D ECHO LV Diastolic Diameter PLAX 4.6 cm 4.2 - 5.9 / 3.9 - 5.3 cm LV Systolic Diameter PLAX 2.9 cm IVS Diastolic Thickness 1.3 cm 0.6 - 1.0 / 0.6 - 0.9 cm LVPW Diastolic Thickness 1.4 cm 0.6 - 1.0 / 0.6 - 0.9 cm LV Relative Wall Thickness 0.6 RV Internal Dim ED PLAX 2.7 cm LVOT Diameter 2.4 cm LA Volume 54.3 cm??? 18 - 58 / 22 - 52 cm??? M-MODE Aortic Root Diameter MM 3.3 cm LA Systolic Diameter MM 3.5 cm LA Ao Ratio MM 1.1 AV Cusp Separation MM 2.4 cm DOPPLER AV Peak Velocity 144.3 cm/s AV Peak Gradient 8.3 mmHg AV Mean Velocity 122.0 cm/s AV Mean Gradient 6.2 mmHg AV Velocity Time Integral 26.5 cm LVOT Peak Velocity 119.3 cm/s LVOT Peak Gradient 5.7 mmHg AV Area Cont Eq pk 3.9 cm??? MV Area PHT 4.9 cm??? Mitral E Point Velocity 92.4 cm/s Mitral A Point Velocity 71.3 cm/s Mitral E to A Ratio 1.3 MV Deceleration Time 153.7 ms TR Peak Velocity 181.8 cm/s TR Peak Gradient 13.2 mmHg Right Ventricular Systolic Press 17.6 mmHg FINDINGS Left Ventricle Mildly increased left ventricular wall thickness. Normal left ventricular systolic function with no obvious regional wall motion abnormalities. Left ventricular ejection fraction is estimated at 55-60 %. Normal left ventricular diastolic filling pattern. Right Ventricle Normal right ventricular size and function. Right ventricular systolic pressure within normal limits. Right Atrium Normal right atrial size. Left Atrium Normal left atrial size. No evidence for an atrial septal defect. Mitral Valve Structurally normal mitral valve. No mitral stenosis or prolapse. Trace mitral regurgitation. Aortic Valve Trileaflet aortic valve. No aortic valve stenosis or regurgitation. Tricuspid Valve Structurally normal tricuspid valve. Trace to mild tricuspid regurgitation. Pulmonic Valve Trace pulmonic regurgitation. Pericardium No pericardial effusion. Aorta Normal size aortic root and proximal ascending aorta. CONCLUSIONS Normal LV systolic function Previewed by: Dr. Roger Cortes MD (Electronically Signed) Final Date: 02 September 2022 13:58
--- NOTE | 2022-09-02 16:03 | P.DS ---
Providers Date of admission: 09/01/22 15:21 Expected date of discharge: 09/02/22 Attending physician: Kaylin Corrales MD Consults: 09/01/22 15:21 Consult Physician Routine Consulting Provider: Tomer Navarro Consult Reason/Comments: chest pain Do you want consulting provider notified?: Yes, Notify in am Primary care physician: Jose Andres Hospital Course: Discharge Diagnosis: Chest pain, acute coronary event ruled out. Troponins trended all less than 0.0123 draws. EKG normal sinus rhythm at 62 beats with a right bundle branch block unchanged from previous EKG completed 06/25/20. Echocardiogram revealing normal EF 55-60% with no significant valvular or structural abnormalities reported. History of V. tach status post cardiac ablation Indigestion, GERD. Improved after GI cocktail. Continue home omeprazole 20 mg daily Hypertension. Monitor vital signs and continue daily medication regimen with lisinopril and metoprolol. Hyperlipidemia. Continue daily medication regimen with atorvastatin. Diabetes mellitus. Resume metformin 500 mg daily. Hospital Course: Patient is a very pleasant 47 show male with a past medical history of hypertension, hyperlipidemia, diabetes mellitus, and history of V. tach status post cardiac ablation. He presented to the emergency department with a chief complaint of chest pain. Patient reports this pain began yesterday while working. Patient describes this pain as a tightness to his midsternal chest accompanied by nausea and indigestion. Patient reports his pain relieves with rest and worsens with movement and bending. He denies having any headache, lightheadedness, dizziness, palpitations, shortness of breath, abdominal pain, vomiting, or experiencing any numbness/tingling/weakness/swelling in his extremities. Patient underwent full evaluation in the emergency department. CBC showed mild leukocytosis with WBC count 13.7 and, coags and CMP unremarkable. Influenza A, influenza B, RSV, and Covid are negative. Troponin less than 0.012. EKG showing normal sinus rhythm at 62 bpm with a right bundle branch block, other than rate this is unchanged from EKG completed 06/25/20. Chest x-ray negative for acute cardiopulmonary process. Patient admitted under our services with consultation to cardiology. Patient was monitored overnight and Troponins trended resulting less than 0.0123 draws. Echocardiogram revealing normal EF 55-60% with no significant valvular or structural abnormalities reported. Patient reports this morning burning pain to chest has completely resolved and states throughout the night pain seemed to move down his abdomen from epigastric region to lower abdomen and improved after taking a bow el movement. Patient currently free from any chest pain or discomfort and continues to deny having any headache, lightheadedness, dizziness, palpitations, shortness of breath, or any other complaints at this time. Patient is medically stable and didn't follow up outpatient with PCP in 1-2 days and cardiology in 1 week. Physical exam: Vital signs reviewed and stable. General: Nontoxic, no distress and appears stated age. Obese. Derm: Skin warm and dry, normal coloration for ethnicity. Head: Atraumatic, normocephalic and symmetric. Eyes: EOMs intact, no lid lag, and anicteric sclera Mouth: no lip lesions, mucus membranes moist Cardiovascular: regular rate and rhythm with normal S1S2, no murmur, positive posterior tibial pulses bilaterally, and cap refill < 2 seconds. Lungs: Respirations even, regular, and unlabored on room air. Lungs CTA bilaterally, no rhonchi, no rales, no wheezing, and no accessory muscle usage. Abdominal: soft, nontender to palpation, no guarding, no appreciable organomegaly Ext: ROM intact. No gross muscle atrophy, no edema, no contractures Neuro: Speech clear, face symmetrical and CN II-XII grossly intact with no noted focal neuro deficits Psych: Alert and oriented to person, place, time, and situation. Appropriate and pleasant affect. A total of 32 minutes of time were spent preparing this complex discharge summary. Pt was discharged on 09/02/22 at 3:41 PM I reviewed the documentation as provided by the WESLY above, who is the original author of this note. I agree with the documented assessment and plan, with the following changes: none Patient Condition at Discharge: Stable Plan - Discharge Summary Discharge Rx Participant: Yes New Discharge Prescriptions: Continue Omeprazole 20 mg PO DAILY Atorvastatin [Lipitor] 40 mg PO DAILY icosapent ethyL [Icosapent Ethyl] 1 gm PO DAILY Metoprolol Succinate [Toprol XL] 50 mg PO DAILY Cinnamon Bark [Cinnamon] 1,000 mg PO DAILY metFORMIN HCL ER [Glucophage XR] 500 mg PO DAILY lisinopriL [Zestril] 5 mg PO DAILY Cholecalciferol [Vitamin D3 (25 Mcg = 1000 Iu)] 25 mcg PO DAILY Discharge Medication List Omeprazole 20 mg PO DAILY 04/10/20 [History] Atorvastatin [Lipitor] 40 mg PO DAILY 09/27/20 [History] Metoprolol Succinate [Toprol XL] 50 mg PO DAILY 01/30/22 [History] icosapent ethyL [Icosapent Ethyl] 1 gm PO DAILY 01/30/22 [History] lisinopriL [Zestril] 5 mg PO DAILY 01/30/22 [History] Cholecalciferol [Vitamin D3 (25 Mcg = 1000 Iu)] 25 mcg PO DAILY 09/01/22 [History] Cinnamon Bark [Cinnamon] 1,000 mg PO DAILY 09/01/22 [History] metFORMIN HCL ER [Glucophage XR] 500 mg PO DAILY 09/01/22 [History] Follow up Appointment(s)/Referral(s): Jose Andres MD [Primary Care Provider] - 1-2 days Roger Cortes MD [STAFF PHYSICIAN] - 1 Week Patient Instructions/Handouts: Chest Pain (DC) Activity/Diet/Wound Care/Special Instructions: Activity: As tolerated. Take breaks as needed. Diet: Heart healthy and carb consistent diet. Avoid salts, or foods with hidden salts such as canned or boxed foods and frozen dinners. Extra salt makes your heart work harder and traps the fluid in your body for longer. Special Instructions: Take all of your medications as directed and remember to keep all of your doctor's appointments and follow-up as needed. Thank you for allowing us to participate in your care, it was truly a pleasure having you for our patient!!! Discharge Disposition: HOME SELF-CARE
== END 2022-09-02 15:58 | disposition home or self-care (01) ==
LOC: EC 11:43 → 6NMEDSUR 15:21
PROVIDERS: ADMIT Internal Medicine; ATTEND Internal Medicine
DX: R07.89 Other chest pain (principal); I45.10 Unspecified right bundle-branch block; I47.20 Ventricular tachycardia, unspecified; K21.9 Gastro-esophageal reflux disease without esophagitis; K30 Functional dyspepsia; D72.829 Elevated white blood cell count, unspecified; I10 Essential (primary) hypertension; E78.5 Hyperlipidemia, unspecified; E11.9 Type 2 diabetes mellitus without complications; Z73.3 Stress, not elsewhere classified; R10.9 Unspecified abdominal pain; R11.2 Nausea with vomiting, unspecified; R19.7 Diarrhea, unspecified; R13.10 Dysphagia, unspecified; G47.30 Sleep apnea, unspecified; E66.9 Obesity, unspecified; Z68.42 Body mass index [BMI] 45.0-49.9, adult; Z20.822 Contact with and (suspected) exposure to COVID-19; Z79.84 Long term (current) use of oral hypoglycemic drugs; Z79.899 Other long term (current) drug therapy; Z91.018 Allergy to other foods; Z98.890 Other specified postprocedural states; Z86.79 Personal history of other diseases of the circulatory system; Z83.3 Family history of diabetes mellitus; Z82.49 Family history of ischemic heart disease and other diseases of the circulatory system
CPT/HCPCS: 96372; 96361; 96374; 96375; 99285; 36415; 93005; 93306; 80053 ×2; 83735; 84484; 85025; 85027; 85610; 85730; 87636; 71046; G0378 ×2; J2405; J1650; C9113; Q9950

== ENCOUNTER → 2023-07-25 | Outpatient (CLI) | payer OTHER ==
--- NOTE | 2023-07-25 10:10 | XR ---
EXAMINATION TYPE: XR foot complete LT DATE OF EXAM: 07/25/2023 CLINICAL HISTORY: pain TECHNIQUE: Frontal, lateral and oblique images of the left foot are obtained. COMPARISON: None. FINDINGS: There is no acute fracture/dislocation evident. The joint spaces appear within normal herrera its. The overlying soft tissue appears unremarkable. Plantar and dorsal spurs noted. IMPRESSION: There is no acute fracture or dislocation. ICD 10 NO FRACTURE, INITIAL EVALUATION
== END | disposition home or self-care (01) ==
LOC: RADXRMAIN 08:47
PROVIDERS: ATTEND Emergency Medicine Emergency Medical Services
DX: S97.82XA Crushing injury of left foot, initial encounter (principal); X58.XXXA Exposure to other specified factors, initial encounter